=== PATIENT | female | born 1940 | race Caucasian/White ===

== ENCOUNTER 2016-12-22 17:09 | Inpatient (IN) | payer OTHER ==
[~2016-12-22] VITALS: Ht 152.4 cm; Wt 106.2 kg
[~2016-12-22 17:09] MED LIST: ACETAMINOPHEN500 MG PO; ASPIR-LOW81 MG PO; ATROVENT 00.5 MG/2.5 IH; AUGMENTIN875 MG PO; AZELASTINE137 MCG/0. BOTH NARES; BENTYL10 MG PO; BENZONATATE100 MG PO; BUMETANIDE1 MG PO; BUMEX1 MG PO; BUMEX2 MG PO; CARVEDILOL12.5 MG PO; COREG12.5 M1 PO; CORTISONE SHOT; COZAAR100 MG PO; DOCUSATE SODIU100 M1 PO; ELIQUIS5 MG PO; ELOCON 0.1% CRE15 GM TP; ESOMEPRAZOLE MA40 MG PO; FOLIC ACID1 MG PO; FUROSEMIDE40 MG PO; HYDROCORTISONE30 G2 TP; K-DUR20 MEQ PO; LASIX40 MG PO; LASIX80 MG PO; LEVOFLOXACIN750 MG PO; LEVOTHYROXINE88 MCG PO; LIDOCAINE700 MG TD; LIDODERM 5% P1 PATCH TD; LIPITOR10 MG PO; LISINOPRIL40 MG PO; LOSARTAN POTAS100 MG PO; LOW DOSE ASPIRI81 M1 PO; LYRICA50 MG PO; METAXALONE800 MG PO; METHOTREXATE2.5 MG PO; MIRALAX17 GM PO; MIRALAX255 GM PO; NEXIUM40 MG PO; NORVASC10 M1 PO; NORVASC5 MG PO; OXYCODONE HCL10 MG PO; OXYCODONE HCL5 MG PO; PREDNISONE10 MG PO; PROAIR HFA8.5 GM IH; PROCTOCREAM-HC30 GM PR; PROTONIX40 MG PO; QUESTRAN PACKET4 GM PO; SERTRALINE HCL100 MG PO; SERTRALINE HCL50 MG PO; SPIRIVA RESPIMAT4 GM IH; SPIRIVA1 INHALATI IH; SPIRONOLACTONE25 MG PO; SPIRONOLACTONE50 MG PO; SYMBICORT60 INHALAT IH; TRAMADOL HCL50 MG PO; VENTOLIN HFA18 GM IH; VENTOLIN17 GM IH; ZESTRIL,PRINIVI10 MG PO; ZOFRAN ODT4 MG PO; ZOFRAN4 MG PO
[2016-12-22 17:50] LABS: HEMATOCRIT 30.8 % (36.0-46.0); MCH 23.8 PG (29.0-34.0); MCHC 31.5 G/DL (30.0-36.0); MCV 75.5 FL (83-99); MEAN PLAT.VOLUME 8.9 uM^3 (9.5-12.4); PLATELET COUNT 359 K/uL (156-360); RBC DIS.WIDTH-CV 18.3 % (11.8-14.6); RBC DIS.WIDTH-SD 48.3 % (39-53); RED BLOOD COUNT 4.08 M/uL (3.80-5.20); WHITE BLOOD COUNT 6.9 K/uL (4.1-10.2)
[2016-12-22 17:58] LABS: CHLORIDE 102 mEq/L (99-109); SODIUM 141 mEq/L (136-147)
[2016-12-22 18:00] LABS: GLUCOSE 141 mg/dL (70-99)
[2016-12-22 18:01] LABS: ANION GAP 13 MEQ/L (2-14)
[2016-12-22 18:04] LABS: GFR ESTIMATE (CALCULATED) > 59 mL/min/
[2016-12-22 18:05] LABS: UREA NITROGEN (BUN) 11 mg/dL (9-23)
[2016-12-22 18:10] LABS: TROP-I INTERPRETATION NEGATIVE; TROPONIN-I 0.01 ng/mL (0.0-0.30)
[2016-12-22] MEDS ORDERED: ELOCON 0.1% CRE15 GM TP (20:04)
[2016-12-22] MEDS ORDERED: PROVENTIL,2.5 MG/3 M IH (20:11)
[2016-12-22] MEDS ORDERED: BREO ELLIPTA 21 EACH IH (20:11)
[2016-12-22 21:39] VITALS: BP 107/59
[2016-12-22 23:34] VITALS: BP 107/59
[2016-12-22 23:39] LABS: TROP-I INTERPRETATION NEGATIVE; TROPONIN-I 0.01 ng/mL (0.0-0.30)
[2016-12-23 01:03] LABS: INFLUENZA A VIRAL ANTIGEN NEGATIVE; INFLUENZA B VIRAL ANTIGEN NEGATIVE
[2016-12-23 06:53] LABS: HEMATOCRIT 30.2 % (36.0-46.0); MCH 23.7 PG (29.0-34.0); MCHC 30.5 G/DL (30.0-36.0); MCV 77.6 FL (83-99); MEAN PLAT.VOLUME 9.7 uM^3 (9.5-12.4); PLATELET COUNT 314 K/uL (156-360); RBC DIS.WIDTH-CV 18.2 % (11.8-14.6); RBC DIS.WIDTH-SD 51.6 % (39-53); RED BLOOD COUNT 3.89 M/uL (3.80-5.20); WHITE BLOOD COUNT 5.8 K/uL (4.1-10.2)
[2016-12-23 07:16] LABS: EOSINOPHIL (%) 0 % (0-5); IMMATURE GRANULOCYTE (%) 1.4 % (0.0-0.7); IMMATURE GRANULOCYTE COUNT 0.1 K/uL; LYMPHOCYTE COUNT 1.4 K/uL (1.0-2.8); MONOCYTE (%) 2.4 % (3-12); MONOCYTE COUNT 0.1 K/uL (0-0.8); NEUTROPHIL (%) 71.9 % (45-76); NEUTROPHIL COUNT 4.2 K/uL (1.8-6.4)
[2016-12-23 07:18] LABS: ALKALINE PHOSPHATASE 93 IU/L (3-129); ANION GAP 11 MEQ/L (2-14); CHLORIDE 103 MEQ/L (99-109); GFR ESTIMATE (CALCULATED) 57 mL/min/; POTASSIUM 4.3 MEQ/L (3.7-5.4); SAMPLE HEMOLYSIS CHECK 0; SAMPLE ICTERIC CHECK 0; SAMPLE LIPEMIA CHECK 0; SODIUM 141 MEQ/L (136-147); TOTAL BILIRUBIN 0.6 MG/DL (0.0-1.0); UREA NITROGEN (BUN) 16 mg/dL (9-23)
[2016-12-23 07:21] LABS: GLUCOSE 309 mg/dL (70-99)
[2016-12-23 07:29] LABS: TROP-I INTERPRETATION NEGATIVE; TROPONIN-I 0.01 ng/mL (0.0-0.30)
[2016-12-23 07:42] VITALS: BP 130/86
[2016-12-23 07:49] LABS: INTERNAL CONTROL VALID? YES
[2016-12-23 13:44] LABS: INTER. NORMALIZED RATIO 1.2; PROTHROMBIN TIME 12.7 (9.2-11.2)
[2016-12-23 14:19] LABS: D-DIMER ELISA 0.55 mg/L FEU (< 0.57)
[2016-12-23 15:34] VITALS: BP 128/79
[2016-12-23 21:00] VITALS: BP 122/64
[2016-12-24] VITALS: BP 122/64
[2016-12-24 08:42] VITALS: BP 149/67
[2016-12-24 08:53] LABS: INTERNAL CONTROL VALID? YES
[2016-12-24 14:43] VITALS: BP 135/69
[2016-12-24 23:59] VITALS: BP 136/67
[2016-12-25] VITALS (15 sets, daily range): BP systolic 119–175; BP diastolic 50–82
[2016-12-25 04:08] LABS: BASE EXCESS 5.2 mEq/L (-3 to +3); BICARBONATE 29.9 mEq/L (22-26); CARBOXY HGB 0.9 % (0-5); METHEMOGLOBIN 0.9 % (0-1.5); PCO2 44 mm Hg (35-45); PO2 61 mm Hg (80-100); pH 7.44 (7.35-7.45)
[2016-12-25 04:09] LABS: COMMENTS - BLOOD GASES C+; DEVICE HHFNC; FI02 100 %; O2 FLOW 50 L/MIN; SITE RR; TOTAL RESP RATE 20 resp/min
[2016-12-25 04:41] LABS: EOSINOPHIL (%) 0 % (0-5); HEMATOCRIT 30.5 % (36.0-46.0); IMMATURE GRANULOCYTE (%) 1.1 % (0.0-0.7); IMMATURE GRANULOCYTE COUNT 1.2 K/uL; LYMPHOCYTE COUNT 1.1 K/uL (1.0-2.8); MCH 23.7 PG (29.0-34.0); MCHC 30.8 G/DL (30.0-36.0); MCV 76.8 FL (83-99); MEAN PLAT.VOLUME 9.2 uM^3 (9.5-12.4); MONOCYTE (%) 4.6 % (3-12); MONOCYTE COUNT 0.5 K/uL (0-0.8); NEUTROPHIL COUNT 9.4 K/uL (1.8-6.4); PLATELET COUNT 388 K/uL (156-360); RBC DIS.WIDTH-CV 17.9 % (11.8-14.6); RBC DIS.WIDTH-SD 47.9 % (39-53); RED BLOOD COUNT 3.97 M/uL (3.80-5.20); WHITE BLOOD COUNT 11.1 K/uL (4.1-10.2)
[2016-12-25 04:46] LABS: CHLORIDE 106 mEq/L (99-109); POTASSIUM 4.1 mEq/L (3.7-5.4); SODIUM 144 mEq/L (136-147)
[2016-12-25 04:48] LABS: GLUCOSE 356 mg/dL (70-99)
[2016-12-25 04:50] LABS: ANION GAP 13 MEQ/L (2-14); TOTAL BILIRUBIN 0.5 mg/dL (0.0-1.0)
[2016-12-25 04:52] LABS: ALKALINE PHOSPHATASE 113 IU/L (3-129); GFR ESTIMATE (CALCULATED) 51 mL/min/
[2016-12-25 04:57] LABS: UREA NITROGEN (BUN) 28 mg/dL (9-23)
[2016-12-25 06:01] LABS: BASE EXCESS 6.1 mEq/L (-3 to +3); BICARBONATE 30.6 mEq/L (22-26); CARBOXY HGB 0.7 % (0-5); COMMENTS - BLOOD GASES C+; DEVICE MASK VENT; FI02 100 %; HEMOGLOBIN 9.1 (11.9-15.5); MODE SPONT; PCO2 43 mm Hg (35-45); PO2 107 mm Hg (80-100); SITE RR; pH 7.46 (7.35-7.45)
[2016-12-25 06:02] LABS: PEEP 8 CM/H20; PRES. SUPPORT 10 CM/H2O; TOTAL RESP RATE 31 resp/min
[2016-12-25 06:04] LABS: MAGNESIUM 1.7 mg/dL (1.3-2.7)
[2016-12-25 06:27] LABS: METH RESISTANT S AUREUS PCR NEGATIVE (NEGATIVE)
[2016-12-25 06:30] LABS: PROBE CHECK PASS; SPECIMEN PROCESSING CONTROL PASS
[2016-12-25 12:35] LABS: POINT-OF-CARE METER ID UU14174217
[2016-12-25 18:11] LABS: POINT-OF-CARE METER ID UU14174217
[2016-12-25 23:57] LABS: POINT-OF-CARE METER ID UU14174217
[2016-12-26] VITALS (21 sets, daily range): BP systolic 121–157; BP diastolic 44–77
[2016-12-26 05:06] LABS: POINT-OF-CARE METER ID UU14174217
[2016-12-26 05:47] LABS: HEMATOCRIT 29.1 % (36.0-46.0); MCH 23.5 PG (29.0-34.0); MCHC 29.9 G/DL (30.0-36.0); MCV 78.4 FL (83-99); MEAN PLAT.VOLUME 9.9 uM^3 (9.5-12.4); PLATELET COUNT 301 K/uL (156-360); RBC DIS.WIDTH-SD 51.9 % (39-53); RED BLOOD COUNT 3.71 M/uL (3.80-5.20)
[2016-12-26 06:23] LABS: ANION GAP 10 MEQ/L (2-14); CHLORIDE 104 MEQ/L (99-109); GFR ESTIMATE (CALCULATED) > 59 mL/min/; GLUCOSE 244 mg/dL (70-99); MAGNESIUM 1.7 mg/dl (1.3-2.7); POTASSIUM 3.8 MEQ/L (3.7-5.4); SAMPLE HEMOLYSIS CHECK 0; SAMPLE ICTERIC CHECK 0; SAMPLE LIPEMIA CHECK 0; SODIUM 144 MEQ/L (136-147); UREA NITROGEN (BUN) 24 mg/dL (9-23)
[2016-12-26 11:49] LABS: POINT-OF-CARE METER ID UU14174217
[2016-12-26 17:30] LABS: POINT-OF-CARE METER ID UU13113731
[2016-12-27] VITALS (19 sets, daily range): BP systolic 98–158; BP diastolic 42–109
[2016-12-27 06:24] LABS: HEMATOCRIT 29.2 % (36.0-46.0); MCH 23.8 PG (29.0-34.0); MCHC 30.1 G/DL (30.0-36.0); MCV 78.9 FL (83-99); PLATELET COUNT 300 K/uL (156-360); RBC DIS.WIDTH-CV 18.2 % (11.8-14.6); RBC DIS.WIDTH-SD 52.2 % (39-53); WHITE BLOOD COUNT 8.4 K/uL (4.1-10.2)
[2016-12-27 06:33] LABS: POINT-OF-CARE METER ID UU13113748
[2016-12-27 06:51] LABS: ANION GAP 10 MEQ/L (2-14); CHLORIDE 104 MEQ/L (99-109); GFR ESTIMATE (CALCULATED) > 59 mL/min/; GLUCOSE 276 mg/dL (70-99); POTASSIUM 3.8 MEQ/L (3.7-5.4); SAMPLE HEMOLYSIS CHECK 0; SAMPLE ICTERIC CHECK 0; SAMPLE LIPEMIA CHECK 0; SODIUM 147 MEQ/L (136-147); UREA NITROGEN (BUN) 29 mg/dL (9-23)
[2016-12-27 06:56] LABS: MAGNESIUM 2.3 mg/dl (1.3-2.7)
[2016-12-27 12:15] LABS: POINT-OF-CARE METER ID UU13113748
[2016-12-27 17:29] LABS: POINT-OF-CARE METER ID UU13113748
[2016-12-27 17:31] LABS: C DIFF TOXIN NEGATIVE (NEGATIVE)
[2016-12-27 17:34] LABS: PROBE CHECK PASS; SPECIMEN PROCESSING CONTROL PASS
[2016-12-28] VITALS (19 sets, daily range): BP systolic 113–152; BP diastolic 42–64
[2016-12-28 00:19] LABS: POINT-OF-CARE METER ID UU13113748
[2016-12-28 05:45] LABS: MCH 23.6 PG (29.0-34.0); MCHC 30.3 G/DL (30.0-36.0); MCV 77.7 FL (83-99); MEAN PLAT.VOLUME 9.8 uM^3 (9.5-12.4); PLATELET COUNT 298 K/uL (156-360); RBC DIS.WIDTH-CV 18.1 % (11.8-14.6); RBC DIS.WIDTH-SD 51.6 % (39-53); RED BLOOD COUNT 3.73 M/uL (3.80-5.20); WHITE BLOOD COUNT 9.6 K/uL (4.1-10.2)
[2016-12-28 06:11] LABS: ANION GAP 8 MEQ/L (2-14); CHLORIDE 100 MEQ/L (99-109); GFR ESTIMATE (CALCULATED) > 59 mL/min/; GLUCOSE 216 mg/dL (70-99); MAGNESIUM 2.2 mg/dl (1.3-2.7); POTASSIUM 3.5 MEQ/L (3.7-5.4); SAMPLE HEMOLYSIS CHECK 0; SAMPLE ICTERIC CHECK 0; SAMPLE LIPEMIA CHECK 0; SODIUM 144 MEQ/L (136-147); UREA NITROGEN (BUN) 28 mg/dL (9-23)
[2016-12-28 06:33] LABS: POINT-OF-CARE METER ID UU13113748
[2016-12-28 11:23] LABS: ANTI-NUCLEAR AB SCRN/RFLX(ANA) REACTIVE (NONREACTIVE)
[2016-12-28 11:26] LABS: POINT-OF-CARE METER ID UU14162636
[2016-12-28 11:27] LABS: JO-1 ANTIBODY 164 U/mL (0-99); SCL-70 (SCLERODERMA) ANTIBODY 9 U/mL (0-99); SM (SMITH) ANTIBODY 22 U/mL (0-99); SS-A (SJOGREN'S) ANTIBODY 18 U/mL (0-99); SS-B (SJOGREN'S) ANTIBODY 8 U/mL (0-99)
[2016-12-28 11:28] LABS: CENTROMERE ANTIBODY 5 U/mL (0-99); HISTONE ANTIBODY 26 U/mL (0-99)
[2016-12-28 17:53] LABS: POINT-OF-CARE METER ID UU14174217
[2016-12-29] VITALS (23 sets, daily range): BP systolic 100–168; BP diastolic 39–71
[2016-12-29 00:18] LABS: POINT-OF-CARE METER ID UU13113748; POINT-OF-CARE USER ID RADDRS44
[2016-12-29 06:15] LABS: HEMATOCRIT 31.7 % (36.0-46.0); MCH 23.3 PG (29.0-34.0); MCV 77.7 FL (83-99); MEAN PLAT.VOLUME 9.9 uM^3 (9.5-12.4); PLATELET COUNT 282 K/uL (156-360); RBC DIS.WIDTH-CV 18.1 % (11.8-14.6); RBC DIS.WIDTH-SD 51.7 % (39-53); RED BLOOD COUNT 4.08 M/uL (3.80-5.20); WHITE BLOOD COUNT 11.1 K/uL (4.1-10.2)
[2016-12-29 06:41] LABS: ANION GAP 10 MEQ/L (2-14); CHLORIDE 99 MEQ/L (99-109); GFR ESTIMATE (CALCULATED) 57 mL/min/; GLUCOSE 227 mg/dL (70-99); MAGNESIUM 2.1 mg/dl (1.3-2.7); POTASSIUM 4.1 MEQ/L (3.7-5.4); SAMPLE HEMOLYSIS CHECK 0; SAMPLE ICTERIC CHECK 0; SAMPLE LIPEMIA CHECK 0; SODIUM 142 MEQ/L (136-147); UREA NITROGEN (BUN) 31 mg/dL (9-23)
[2016-12-29 09:48] LABS: POC NON-PRINT COM 1 ND
[2016-12-29 12:56] LABS: POINT-OF-CARE METER ID UU14162636
[2016-12-29 17:29] LABS: POINT-OF-CARE METER ID UU13113748
[2016-12-29 21:40] LABS: POINT-OF-CARE METER ID UU14162636
[2016-12-30] VITALS (8 sets, daily range): BP systolic 122–167; BP diastolic 41–70
[2016-12-30 05:59] LABS: HEMATOCRIT 30.6 % (36.0-46.0); MCH 23.2 PG (29.0-34.0); MCHC 29.7 G/DL (30.0-36.0); MCV 78.1 FL (83-99); MEAN PLAT.VOLUME 9.9 uM^3 (9.5-12.4); PLATELET COUNT 287 K/uL (156-360); RBC DIS.WIDTH-CV 18.3 % (11.8-14.6); RBC DIS.WIDTH-SD 51.8 % (39-53); RED BLOOD COUNT 3.92 M/uL (3.80-5.20)
[2016-12-30 06:43] LABS: ANION GAP 12 MEQ/L (2-14); CHLORIDE 100 MEQ/L (99-109); GFR ESTIMATE (CALCULATED) 51 mL/min/; GLUCOSE 220 mg/dL (70-99); MAGNESIUM 2.2 mg/dl (1.3-2.7); POTASSIUM 3.9 MEQ/L (3.7-5.4); SAMPLE HEMOLYSIS CHECK 0; SAMPLE ICTERIC CHECK 0; SAMPLE LIPEMIA CHECK 0; SODIUM 142 MEQ/L (136-147); UREA NITROGEN (BUN) 38 mg/dL (9-23)
[2016-12-30 08:30] LABS: POINT-OF-CARE METER ID UU13113731
[2016-12-30 11:54] LABS: POINT-OF-CARE METER ID UU13113731
[2016-12-30 17:07] LABS: POINT-OF-CARE METER ID UU13113731
[2016-12-30 22:22] LABS: POINT-OF-CARE METER ID UU13113803
[2016-12-31] VITALS (8 sets, daily range): BP systolic 128–164; BP diastolic 47–71
[2016-12-31 05:49] LABS: HEMATOCRIT 30.6 % (36.0-46.0); MCH 23.1 PG (29.0-34.0); MCHC 29.4 G/DL (30.0-36.0); MCV 78.5 FL (83-99); PLATELET COUNT 256 K/uL (156-360); RBC DIS.WIDTH-CV 18.8 % (11.8-14.6); RBC DIS.WIDTH-SD 53.1 % (39-53); WHITE BLOOD COUNT 9.6 K/uL (4.1-10.2)
[2016-12-31 06:58] LABS: ANION GAP 9 MEQ/L (2-14); CHLORIDE 105 MEQ/L (99-109); GFR ESTIMATE (CALCULATED) > 59 mL/min/; GLUCOSE 202 mg/dL (70-99); MAGNESIUM 2.3 mg/dl (1.3-2.7); SAMPLE HEMOLYSIS CHECK 0; SAMPLE ICTERIC CHECK 0; SAMPLE LIPEMIA CHECK 0; SODIUM 143 MEQ/L (136-147); UREA NITROGEN (BUN) 31 mg/dL (9-23)
[2016-12-31 07:53] LABS: POINT-OF-CARE METER ID UU13113748
[2016-12-31 12:41] LABS: POINT-OF-CARE METER ID UU13113748
[2016-12-31 18:27] LABS: POINT-OF-CARE METER ID UU13113748; POINT-OF-CARE USER ID 606021424
[2016-12-31 21:53] LABS: POINT-OF-CARE METER ID UU13113731
[2016-12-31 23:09] LABS: INTERNAL CONTROL VALID? YES
[2017-01-01] VITALS (7 sets, daily range): BP systolic 127–157; BP diastolic 56–76
[2017-01-01 05:50] LABS: MCH 23.9 PG (29.0-34.0); MCHC 30.3 G/DL (30.0-36.0); MCV 78.7 FL (83-99); MEAN PLAT.VOLUME 10.4 uM^3 (9.5-12.4); PLATELET COUNT 242 K/uL (156-360); RBC DIS.WIDTH-CV 18.9 % (11.8-14.6); RBC DIS.WIDTH-SD 53.3 % (39-53); RED BLOOD COUNT 3.81 M/uL (3.80-5.20); WHITE BLOOD COUNT 10.1 K/uL (4.1-10.2)
[2017-01-01 06:25] LABS: ANION GAP 9 MEQ/L (2-14); CHLORIDE 102 MEQ/L (99-109); GFR ESTIMATE (CALCULATED) > 59 mL/min/; GLUCOSE 193 mg/dL (70-99); MAGNESIUM 2.3 mg/dl (1.3-2.7); POTASSIUM 4.2 MEQ/L (3.7-5.4); SAMPLE HEMOLYSIS CHECK 0; SAMPLE ICTERIC CHECK 0; SAMPLE LIPEMIA CHECK 0; SODIUM 140 MEQ/L (136-147); UREA NITROGEN (BUN) 30 mg/dL (9-23)
[2017-01-01 06:52] LABS: ERTH.SED.RATE 92 MM/HR (0-30)
[2017-01-01 12:55] LABS: POINT-OF-CARE METER ID UU13113748
[2017-01-01 17:23] LABS: POINT-OF-CARE METER ID UU13113748
[2017-01-01 22:06] LABS: POINT-OF-CARE METER ID UU13113748
[2017-01-02] VITALS (12 sets, daily range): BP systolic 127–163; BP diastolic 44–73
[2017-01-02 05:24] LABS: HEMATOCRIT 29.8 % (36.0-46.0); MCH 23.5 PG (29.0-34.0); MCHC 29.9 G/DL (30.0-36.0); MCV 78.6 FL (83-99); MEAN PLAT.VOLUME 10.1 uM^3 (9.5-12.4); PLATELET COUNT 247 K/uL (156-360); RBC DIS.WIDTH-CV 19.1 % (11.8-14.6); RBC DIS.WIDTH-SD 53.4 % (39-53); RED BLOOD COUNT 3.79 M/uL (3.80-5.20)
[2017-01-02 05:53] LABS: ANION GAP 9 MEQ/L (2-14); CHLORIDE 104 MEQ/L (99-109); GFR ESTIMATE (CALCULATED) > 59 mL/min/; GLUCOSE 237 mg/dL (70-99); MAGNESIUM 2.2 mg/dl (1.3-2.7); POTASSIUM 4.6 MEQ/L (3.7-5.4); SAMPLE HEMOLYSIS CHECK 0; SAMPLE ICTERIC CHECK 0; SAMPLE LIPEMIA CHECK 0; SODIUM 139 MEQ/L (136-147); UREA NITROGEN (BUN) 33 mg/dL (9-23)
[2017-01-02 06:57] LABS: EOSINOPHIL (%) 0 % (0-5); HEMATOLOGY COMMENT 1 SMEAR COMPATIBLE; IMMATURE GRANULOCYTE COUNT 0.2 K/uL; LYMPHOCYTE COUNT 1.1 K/uL (1.0-2.8); MONOCYTE (%) 3.6 % (3-12); MONOCYTE COUNT 0.4 K/uL (0-0.8); NEUTROPHIL (%) 84.1 % (45-76); NEUTROPHIL COUNT 9.2 K/uL (1.8-6.4); USER ID CCL
[2017-01-02 09:03] LABS: POINT-OF-CARE METER ID UU13113748
[2017-01-02 12:28] LABS: POINT-OF-CARE METER ID UU13113748
[2017-01-02 17:47] LABS: POINT-OF-CARE METER ID UU13113748
[2017-01-02 22:38] LABS: POINT-OF-CARE METER ID UU13113803
[2017-01-03] VITALS (16 sets, daily range): BP systolic 126–173; BP diastolic 45–75
[2017-01-03 05:31] LABS: MCH 23.4 PG (29.0-34.0); MCHC 29.7 G/DL (30.0-36.0); MCV 78.9 FL (83-99); MEAN PLAT.VOLUME 10.4 uM^3 (9.5-12.4); PLATELET COUNT 226 K/uL (156-360); RBC DIS.WIDTH-CV 19.1 % (11.8-14.6); RBC DIS.WIDTH-SD 53.7 % (39-53); WHITE BLOOD COUNT 10.5 K/uL (4.1-10.2)
[2017-01-03 05:43] LABS: EOSINOPHIL (%) 0 % (0-5); IMMATURE GRANULOCYTE (%) 1.6 % (0.0-0.7); IMMATURE GRANULOCYTE COUNT 0.2 K/uL; LYMPHOCYTE COUNT 1.1 K/uL (1.0-2.8); MONOCYTE (%) 3.7 % (3-12); MONOCYTE COUNT 0.4 K/uL (0-0.8); NEUTROPHIL (%) 84.5 % (45-76); NEUTROPHIL COUNT 8.9 K/uL (1.8-6.4)
[2017-01-03 06:06] LABS: ANION GAP 8 MEQ/L (2-14); CHLORIDE 104 MEQ/L (99-109); GFR ESTIMATE (CALCULATED) > 59 mL/min/; GLUCOSE 228 mg/dL (70-99); POTASSIUM 4.7 MEQ/L (3.7-5.4); SAMPLE HEMOLYSIS CHECK 0; SAMPLE ICTERIC CHECK 0; SAMPLE LIPEMIA CHECK 0; SODIUM 138 MEQ/L (136-147); UREA NITROGEN (BUN) 30 mg/dL (9-23)
[2017-01-03 12:08] LABS: POINT-OF-CARE METER ID UU13113748
[2017-01-03 21:24] LABS: POINT-OF-CARE METER ID UU13113803
[2017-01-03 22:30] LABS: POINT-OF-CARE METER ID UU13113748
[2017-01-04] VITALS (7 sets, daily range): BP systolic 123–167; BP diastolic 44–92
[2017-01-04 06:14] LABS: HEMATOCRIT 31.2 % (36.0-46.0); MCH 23.4 PG (29.0-34.0); MCHC 29.8 G/DL (30.0-36.0); MCV 78.4 FL (83-99); MEAN PLAT.VOLUME 10.4 uM^3 (9.5-12.4); PLATELET COUNT 243 K/uL (156-360); RBC DIS.WIDTH-SD 52.8 % (39-53); RED BLOOD COUNT 3.98 M/uL (3.80-5.20); WHITE BLOOD COUNT 13.1 K/uL (4.1-10.2)
[2017-01-04 06:26] LABS: EOSINOPHIL (%) 0 % (0-5); IMMATURE GRANULOCYTE COUNT 0.3 K/uL; LYMPHOCYTE COUNT 1.3 K/uL (1.0-2.8); MONOCYTE (%) 5.1 % (3-12); MONOCYTE COUNT 0.7 K/uL (0-0.8); NEUTROPHIL (%) 83.1 % (45-76); NEUTROPHIL COUNT 10.9 K/uL (1.8-6.4)
[2017-01-04 06:51] LABS: ANION GAP 9 MEQ/L (2-14); CHLORIDE 102 MEQ/L (99-109); SAMPLE HEMOLYSIS CHECK 0; SAMPLE ICTERIC CHECK 0; SAMPLE LIPEMIA CHECK 0; SODIUM 138 MEQ/L (136-147)
[2017-01-04 06:57] LABS: GFR ESTIMATE (CALCULATED) > 59 mL/min/; GLUCOSE 192 mg/dL (70-99); UREA NITROGEN (BUN) 28 mg/dL (9-23)
[2017-01-05] VITALS (8 sets, daily range): BP systolic 113–177; BP diastolic 53–86
[2017-01-05 09:14] LABS: POINT-OF-CARE METER ID UU13113731
[2017-01-05 12:55] LABS: POINT-OF-CARE METER ID UU13113731
[2017-01-05 17:11] LABS: POINT-OF-CARE METER ID UU13113731
[2017-01-05 21:59] LABS: POINT-OF-CARE METER ID UU13113731
[2017-01-06] VITALS (27 sets, daily range): BP systolic 64–164; BP diastolic 39–84
[2017-01-06 06:33] LABS: HEMATOCRIT 29.8 % (36.0-46.0); MCH 23.2 PG (29.0-34.0); MCHC 29.9 G/DL (30.0-36.0); MCV 77.8 FL (83-99); MEAN PLAT.VOLUME 10.4 uM^3 (9.5-12.4); NRBC (%) 0.3 /100 WBC (0-0); PLATELET COUNT 228 K/uL (156-360); RBC DIS.WIDTH-CV 19.7 % (11.8-14.6); RBC DIS.WIDTH-SD 55.4 % (39-53); RED BLOOD COUNT 3.83 M/uL (3.80-5.20); WHITE BLOOD COUNT 11.9 K/uL (4.1-10.2)
[2017-01-06 06:47] LABS: EOSINOPHIL (%) 0 % (0-5); IMMATURE GRANULOCYTE (%) 1.1 % (0.0-0.7); IMMATURE GRANULOCYTE COUNT 0.1 K/uL; MONOCYTE (%) 4.2 % (3-12); MONOCYTE COUNT 0.5 K/uL (0-0.8); NEUTROPHIL (%) 86.6 % (45-76); NEUTROPHIL COUNT 10.3 K/uL (1.8-6.4)
[2017-01-06 06:50] LABS: ANION GAP 7 MEQ/L (2-14); CHLORIDE 102 MEQ/L (99-109); GFR ESTIMATE (CALCULATED) > 59 mL/min/; GLUCOSE 263 mg/dL (70-99); POTASSIUM 4.4 MEQ/L (3.7-5.4); SAMPLE HEMOLYSIS CHECK 0; SAMPLE ICTERIC CHECK 0; SAMPLE LIPEMIA CHECK 0; SODIUM 139 MEQ/L (136-147); UREA NITROGEN (BUN) 29 mg/dL (9-23)
[2017-01-06 07:48] LABS: POINT-OF-CARE METER ID UU13113698; POINT-OF-CARE USER ID NUTSLF44
[2017-01-06 10:40] LABS: METH RESISTANT S AUREUS PCR NEGATIVE (NEGATIVE); PROBE CHECK PASS; SPECIMEN PROCESSING CONTROL PASS
[2017-01-06 11:58] LABS: BASE EXCESS 3.1 mEq/L (-3 to +3); BICARBONATE 30.1 mEq/L (22-26); CARBOXY HGB 1.8 % (0-5); METHEMOGLOBIN 0.9 % (0-1.5)
[2017-01-06 11:59] LABS: COMMENTS - BLOOD GASES A+C+; DEVICE 840; FI02 100 %; MECHANICAL RATE 20 resp/min; MODE A/C; PCO2 57 mm Hg (35-45); PO2 85 mm Hg (80-100); SITE LR; TIDAL VOLUME 400 ML; TOTAL RESP RATE 20 resp/min; pH 7.33 (7.35-7.45)
[2017-01-06 12:00] LABS: PEEP 10 CM/H20
[2017-01-06 12:05] LABS: ADD MIUA? YES; BILIRUBIN NEGATIVE; BLOOD MODERATE; COLOR AMBER ((YELLOW)); GLUCOSE (STRIP) 50; KETONES NEGATIVE; LEUKOCYTES NEGATIVE; NITRITE NEGATIVE; PROTEIN (STRIP) 100; SPECIFIC GRAVITY 1.021 (1.000-1.030); UROBILINOGEN 0.2 MG/DL (0.2-1.0)
[2017-01-06 12:23] LABS: BACTERIA 2+ /HPF; CASTS NONE SEEN /LPF; CRYSTALS PRESENT; EPITHELIAL CELLS 1+ /HPF; MUCUS NONE SEEN /LPF; UCUL ADDED? YES
[2017-01-06 12:24] LABS: CALCIUM OXALATE CRYSTALS 1+ /HPF
[2017-01-06 15:14] LABS: POINT-OF-CARE METER ID UU13113803
[2017-01-06 16:27] LABS: BASE EXCESS 3.3 mEq/L (-3 to +3); BICARBONATE 30.1 mEq/L (22-26); CARBOXY HGB 1.5 % (0-5); METHEMOGLOBIN 0.9 % (0-1.5); PCO2 57 mm Hg (35-45); PO2 81 mm Hg (80-100); pH 7.33 (7.35-7.45)
[2017-01-06 16:28] LABS: DEVICE VENT; FI02 100 %; MECHANICAL RATE 12 resp/min; MODE BILEVEL; PRESSURE CONTROL VENTILATION 26 CM H20; SITE LR; TOTAL RESP RATE 34 resp/min
[2017-01-06 16:29] LABS: COMMENTS - BLOOD GASES A+C+:Time low 0.6; PEEP 0 CM/H20; PRES. SUPPORT 36 CM/H2O
[2017-01-06 18:16] LABS: POINT-OF-CARE METER ID UU13113803
[2017-01-06 22:45] LABS: POINT-OF-CARE METER ID UU13113803
[2017-01-07] VITALS (24 sets, daily range): BP systolic 97–141; BP diastolic 43–64
[2017-01-07 06:01] LABS: HEMATOCRIT 29.1 % (36.0-46.0); MCH 23.5 PG (29.0-34.0); MCHC 29.6 G/DL (30.0-36.0); MCV 79.5 FL (83-99); MEAN PLAT.VOLUME 10.4 uM^3 (9.5-12.4); PLATELET COUNT 200 K/uL (156-360); RBC DIS.WIDTH-CV 19.4 % (11.8-14.6); RBC DIS.WIDTH-SD 56.2 % (39-53); RED BLOOD COUNT 3.66 M/uL (3.80-5.20); WHITE BLOOD COUNT 10.3 K/uL (4.1-10.2)
[2017-01-07 06:13] LABS: BASE EXCESS 2.7 mEq/L (-3 to +3); BICARBONATE 29.1 mEq/L (22-26); CARBOXY HGB 1.5 % (0-5); COMMENTS - BLOOD GASES C+; DEVICE VENT; FI02 60 %; MECHANICAL RATE 12 resp/min; METHEMOGLOBIN 1.1 % (0-1.5); MODE BILEVEL/PC; PCO2 54 mm Hg (35-45); PO2 71 mm Hg (80-100); SITE RR; pH 7.34 (7.35-7.45)
[2017-01-07 06:14] LABS: PRES. SUPPORT 36 CM/H2O; PRESSURE CONTROL VENTILATION 26 CM H20; TOTAL RESP RATE 36 resp/min
[2017-01-07 06:15] LABS: PEEP 0 CM/H20
[2017-01-07 06:15] LABS: EOSINOPHIL (%) 0 % (0-5); IMMATURE GRANULOCYTE (%) 0.5 % (0.0-0.7); IMMATURE GRANULOCYTE COUNT 0.1 K/uL; LYMPHOCYTE COUNT 0.6 K/uL (1.0-2.8); MONOCYTE (%) 2.2 % (3-12); MONOCYTE COUNT 0.2 K/uL (0-0.8); NEUTROPHIL (%) 91.7 % (45-76); NEUTROPHIL COUNT 9.4 K/uL (1.8-6.4)
[2017-01-07 06:17] LABS: ANION GAP 8 MEQ/L (2-14); CHLORIDE 103 MEQ/L (99-109); MAGNESIUM 2.1 mg/dl (1.3-2.7); POTASSIUM 4.6 MEQ/L (3.7-5.4); SAMPLE HEMOLYSIS CHECK 0; SAMPLE ICTERIC CHECK 0; SAMPLE LIPEMIA CHECK 0; SODIUM 138 MEQ/L (136-147)
[2017-01-07 06:22] LABS: GFR ESTIMATE (CALCULATED) > 59 mL/min/; GLUCOSE 237 mg/dL (70-99); UREA NITROGEN (BUN) 37 mg/dL (9-23)
[2017-01-08] VITALS (21 sets, daily range): BP systolic 100–139; BP diastolic 48–71
[2017-01-08 02:50] LABS: POINT-OF-CARE METER ID UU13113731
[2017-01-08 05:25] LABS: POINT-OF-CARE METER ID UU13113731
[2017-01-08 05:54] LABS: HEMATOCRIT 28.4 % (36.0-46.0); MCH 23.4 PG (29.0-34.0); MCHC 29.9 G/DL (30.0-36.0); MCV 78.2 FL (83-99); MEAN PLAT.VOLUME 9.9 uM^3 (9.5-12.4); NRBC (%) 0.5 /100 WBC (0-0); PLATELET COUNT 196 K/uL (156-360); RBC DIS.WIDTH-CV 19.5 % (11.8-14.6); RBC DIS.WIDTH-SD 55.2 % (39-53); RED BLOOD COUNT 3.63 M/uL (3.80-5.20); WHITE BLOOD COUNT 8.9 K/uL (4.1-10.2)
[2017-01-08 06:00] LABS: BASE EXCESS 1.8 mEq/L (-3 to +3); BICARBONATE 28.1 mEq/L (22-26); CARBOXY HGB 1.3 % (0-5); COMMENTS - BLOOD GASES C+; DEVICE 840; FI02 60 %; MECHANICAL RATE 12 resp/min; METHEMOGLOBIN 0.8 % (0-1.5); MODE BILEVEL; PCO2 52 mm Hg (35-45); PO2 95 mm Hg (80-100); SITE LR; TOTAL RESP RATE 16 resp/min; pH 7.34 (7.35-7.45)
[2017-01-08 06:01] LABS: PEEP 0 CM/H20; PRES. SUPPORT 36 CM/H2O; PRESSURE CONTROL VENTILATION 26 CM H20
[2017-01-08 06:13] LABS: INTER. NORMALIZED RATIO 1.1; PROTHROMBIN TIME 11.2 (9.2-11.2)
[2017-01-08 06:17] LABS: ANION GAP 10 MEQ/L (2-14); CHLORIDE 105 MEQ/L (99-109); GFR ESTIMATE (CALCULATED) 57 mL/min/; GLUCOSE 235 mg/dL (70-99); POTASSIUM 4.3 MEQ/L (3.7-5.4); SAMPLE HEMOLYSIS CHECK 0; SAMPLE ICTERIC CHECK 0; SAMPLE LIPEMIA CHECK 0; SODIUM 141 MEQ/L (136-147); UREA NITROGEN (BUN) 51 mg/dL (9-23)
[2017-01-08 06:27] LABS: EOSINOPHIL (%) 0 % (0-5); IMMATURE GRANULOCYTE (%) 0.6 % (0.0-0.7); IMMATURE GRANULOCYTE COUNT 0.1 K/uL; LYMPHOCYTE COUNT 0.6 K/uL (1.0-2.8); MONOCYTE (%) 1.8 % (3-12); MONOCYTE COUNT 0.2 K/uL (0-0.8); NEUTROPHIL (%) 91.2 % (45-76); NEUTROPHIL COUNT 8.1 K/uL (1.8-6.4)
[2017-01-08 10:59] LABS: POINT-OF-CARE METER ID UU13113748
[2017-01-08 16:53] LABS: POINT-OF-CARE METER ID UU13113748
[2017-01-08 19:20] LABS: POINT-OF-CARE METER ID UU14162636; POINT-OF-CARE USER ID ENVSME70
[2017-01-08 21:21] LABS: POINT-OF-CARE METER ID UU13113748
[2017-01-08 22:57] LABS: POINT-OF-CARE METER ID UU14174217
[2017-01-09] VITALS (24 sets, daily range): BP systolic 108–141; BP diastolic 52–65
[2017-01-09 03:09] LABS: BASE EXCESS 1.5 mEq/L (-3 to +3); BICARBONATE 27.6 mEq/L (22-26); CARBOXY HGB 1.5 % (0-5); COMMENTS - BLOOD GASES C+; DEVICE PB840; FI02 50 %; METHEMOGLOBIN 0.8 % (0-1.5); MODE BILEVEL; PCO2 50 mm Hg (35-45); PO2 91 mm Hg (80-100); SITE LR; pH 7.35 (7.35-7.45)
[2017-01-09 03:10] LABS: INSPIRATION TIME 0.6 seconds; MECHANICAL RATE 12 resp/min; PEEP 15 CM/H20; TOTAL RESP RATE 28 resp/min
[2017-01-09 05:41] LABS: BASE EXCESS 1.8 mEq/L (-3 to +3); BICARBONATE 27.7 mEq/L (22-26); CARBOXY HGB 1.4 % (0-5); METHEMOGLOBIN 0.9 % (0-1.5); PCO2 49 mm Hg (35-45); PO2 80 mm Hg (80-100); pH 7.36 (7.35-7.45)
[2017-01-09 05:42] LABS: COMMENTS - BLOOD GASES C+; DEVICE PB840; FI02 50 %; MECHANICAL RATE 16 resp/min; MODE AC; PEEP 10 CM/H20; SITE LB; TIDAL VOLUME 450 ML; TOTAL RESP RATE 16 resp/min
[2017-01-09 06:11] LABS: HEMATOCRIT 30.9 % (36.0-46.0); MCH 23.7 PG (29.0-34.0); MCHC 30.1 G/DL (30.0-36.0); MCV 78.8 FL (83-99); MEAN PLAT.VOLUME 10.3 uM^3 (9.5-12.4); NRBC (%) 0.5 /100 WBC (0-0); PLATELET COUNT 214 K/uL (156-360); RBC DIS.WIDTH-CV 19.6 % (11.8-14.6); RBC DIS.WIDTH-SD 56.1 % (39-53); RED BLOOD COUNT 3.92 M/uL (3.80-5.20); WHITE BLOOD COUNT 9.2 K/uL (4.1-10.2)
[2017-01-09 06:36] LABS: EOSINOPHIL (%) 0 % (0-5); IMMATURE GRANULOCYTE (%) 0.8 % (0.0-0.7); IMMATURE GRANULOCYTE COUNT 0.1 K/uL; LYMPHOCYTE COUNT 0.5 K/uL (1.0-2.8); MONOCYTE (%) 1.9 % (3-12); MONOCYTE COUNT 0.2 K/uL (0-0.8); NEUTROPHIL (%) 92.4 % (45-76); NEUTROPHIL COUNT 8.5 K/uL (1.8-6.4)
[2017-01-09 06:49] LABS: ANION GAP 11 MEQ/L (2-14); CHLORIDE 103 MEQ/L (99-109); GFR ESTIMATE (CALCULATED) > 59 mL/min/; GLUCOSE 235 mg/dL (70-99); POTASSIUM 4.4 MEQ/L (3.7-5.4); SAMPLE HEMOLYSIS CHECK 0; SAMPLE ICTERIC CHECK 0; SAMPLE LIPEMIA CHECK 0; SODIUM 140 MEQ/L (136-147); UREA NITROGEN (BUN) 58 mg/dL (9-23)
[2017-01-09 15:00] LABS: POINT-OF-CARE METER ID UU13113731
[2017-01-09 18:25] LABS: POINT-OF-CARE METER ID UU13113731
[2017-01-09 23:23] LABS: POINT-OF-CARE METER ID UU13113731
[2017-01-10] VITALS (18 sets, daily range): BP systolic 115–152; BP diastolic 47–76
[2017-01-10 04:05] LABS: POINT-OF-CARE METER ID UU13113748
[2017-01-10 06:11] LABS: POINT-OF-CARE METER ID UU13113748
[2017-01-10 06:35] LABS: HEMATOCRIT 28.8 % (36.0-46.0); MCH 23.5 PG (29.0-34.0); MCHC 30.2 G/DL (30.0-36.0); MCV 77.6 FL (83-99); MEAN PLAT.VOLUME 9.9 uM^3 (9.5-12.4); NRBC (%) 0.9 /100 WBC (0-0); PLATELET COUNT 169 K/uL (156-360); RBC DIS.WIDTH-CV 19.6 % (11.8-14.6); RBC DIS.WIDTH-SD 55.2 % (39-53); RED BLOOD COUNT 3.71 M/uL (3.80-5.20); WHITE BLOOD COUNT 6.9 K/uL (4.1-10.2)
[2017-01-10 06:47] LABS: EOSINOPHIL (%) 0 % (0-5); IMMATURE GRANULOCYTE (%) 0.6 % (0.0-0.7); LYMPHOCYTE COUNT 0.5 K/uL (1.0-2.8); MONOCYTE COUNT 0.1 K/uL (0-0.8); NEUTROPHIL (%) 90.8 % (45-76); NEUTROPHIL COUNT 6.3 K/uL (1.8-6.4)
[2017-01-10 06:57] LABS: ANION GAP 11 MEQ/L (2-14); CHLORIDE 105 MEQ/L (99-109); GFR ESTIMATE (CALCULATED) > 59 mL/min/; GLUCOSE 248 mg/dL (70-99); POTASSIUM 4.2 MEQ/L (3.7-5.4); SAMPLE HEMOLYSIS CHECK 0; SAMPLE ICTERIC CHECK 0; SAMPLE LIPEMIA CHECK 0; SODIUM 141 MEQ/L (136-147); UREA NITROGEN (BUN) 67 mg/dL (9-23)
[2017-01-10 10:40] LABS: POINT-OF-CARE METER ID UU13113748
[2017-01-10 14:22] LABS: POINT-OF-CARE METER ID UU13113748
[2017-01-10 16:44] LABS: BASE EXCESS 1.6 mEq/L (-3 to +3); BICARBONATE 26.6 mEq/L (22-26); CARBOXY HGB 1.9 % (0-5); COMMENTS - BLOOD GASES AC+; METHEMOGLOBIN 0.9 % (0-1.5); PCO2 43 mm Hg (35-45); PO2 58 mm Hg (80-100); SITE RR
[2017-01-10 16:45] LABS: CONTINUOUS POS AIRWAY PRESSURE 5 cm H2O; DEVICE 840 VENTILATOR; FI02 40 %; MODE TUBE COMPENSATION; TOTAL RESP RATE 31 resp/min
[2017-01-10 17:47] LABS: POINT-OF-CARE METER ID UU13113748
[2017-01-11] VITALS (24 sets, daily range): BP systolic 113–143; BP diastolic 49–63
[2017-01-11 02:22] LABS: POINT-OF-CARE METER ID UU13113803
[2017-01-11 05:26] LABS: POINT-OF-CARE METER ID UU13113803
[2017-01-11 05:32] LABS: BASE EXCESS 4.6 mEq/L (-3 to +3); BICARBONATE 29.2 mEq/L (22-26); CARBOXY HGB 1.4 % (0-5); METHEMOGLOBIN 1.2 % (0-1.5); PCO2 43 mm Hg (35-45); pH 7.44 (7.35-7.45)
[2017-01-11 05:33] LABS: COMMENTS - BLOOD GASES C+; DEVICE PB840; FI02 50 %; MECHANICAL RATE 16 resp/min; MODE ACVC+; PEEP 5 CM/H20; PO2 82 mm Hg (80-100); SITE LB; TIDAL VOLUME 450 ML; TOTAL RESP RATE 16 resp/min
[2017-01-11 05:58] LABS: HEMATOCRIT 27.6 % (36.0-46.0); MCH 23.7 PG (29.0-34.0); MCHC 30.8 G/DL (30.0-36.0); MCV 77.1 FL (83-99); MEAN PLAT.VOLUME 9.9 uM^3 (9.5-12.4); PLATELET COUNT 167 K/uL (156-360); RBC DIS.WIDTH-CV 19.5 % (11.8-14.6); RBC DIS.WIDTH-SD 54.1 % (39-53); RED BLOOD COUNT 3.58 M/uL (3.80-5.20); WHITE BLOOD COUNT 7.2 K/uL (4.1-10.2)
[2017-01-11 06:18] LABS: EOSINOPHIL (%) 0.1 % (0-5); IMMATURE GRANULOCYTE (%) 0.3 % (0.0-0.7); LYMPHOCYTE COUNT 0.5 K/uL (1.0-2.8); MONOCYTE (%) 2.1 % (3-12); MONOCYTE COUNT 0.2 K/uL (0-0.8); NEUTROPHIL (%) 90.3 % (45-76); NEUTROPHIL COUNT 6.5 K/uL (1.8-6.4)
[2017-01-11 06:25] LABS: ANION GAP 9 MEQ/L (2-14); CHLORIDE 107 MEQ/L (99-109); GFR ESTIMATE (CALCULATED) > 59 mL/min/; GLUCOSE 179 mg/dL (70-99); POTASSIUM 3.7 MEQ/L (3.7-5.4); SAMPLE HEMOLYSIS CHECK 0; SAMPLE ICTERIC CHECK 0; SAMPLE LIPEMIA CHECK 0; SODIUM 144 MEQ/L (136-147); UREA NITROGEN (BUN) 61 mg/dL (9-23)
[2017-01-11 09:31] LABS: POINT-OF-CARE METER ID UU13113803
[2017-01-11 17:04] LABS: POINT-OF-CARE METER ID UU13113803
[2017-01-11 18:15] LABS: POINT-OF-CARE METER ID UU13113803
[2017-01-11 22:15] LABS: POINT-OF-CARE METER ID UU13113803
[2017-01-12] VITALS (23 sets, daily range): BP systolic 94–144; BP diastolic 44–81
[2017-01-12 02:05] LABS: POINT-OF-CARE METER ID UU13113803
[2017-01-12 05:24] LABS: POINT-OF-CARE METER ID UU13113803
[2017-01-12 05:48] LABS: HEMATOCRIT 30.2 % (36.0-46.0); MCH 23.2 PG (29.0-34.0); MCHC 29.5 G/DL (30.0-36.0); MCV 78.9 FL (83-99); MEAN PLAT.VOLUME 10.1 uM^3 (9.5-12.4); PLATELET COUNT 163 K/uL (156-360); RBC DIS.WIDTH-SD 57.5 % (39-53); RED BLOOD COUNT 3.83 M/uL (3.80-5.20); WHITE BLOOD COUNT 8.2 K/uL (4.1-10.2)
[2017-01-12 06:13] LABS: ANION GAP 10 MEQ/L (2-14); CHLORIDE 110 MEQ/L (99-109); GFR ESTIMATE (CALCULATED) > 59 mL/min/; GLUCOSE 247 mg/dL (70-99); MAGNESIUM 2.4 mg/dl (1.3-2.7); POTASSIUM 3.9 MEQ/L (3.7-5.4); SAMPLE HEMOLYSIS CHECK 0; SAMPLE ICTERIC CHECK 0; SAMPLE LIPEMIA CHECK 0; SODIUM 146 MEQ/L (136-147); UREA NITROGEN (BUN) 61 mg/dL (9-23)
[2017-01-12 11:30] LABS: POINT-OF-CARE METER ID UU13113803
[2017-01-12 13:24] LABS: POINT-OF-CARE METER ID UU13113803
[2017-01-12 18:02] LABS: POINT-OF-CARE METER ID UU13113803
[2017-01-12 23:02] LABS: POINT-OF-CARE METER ID UU13113803
[2017-01-13] VITALS (22 sets, daily range): BP systolic 111–136; BP diastolic 45–67
[2017-01-13 03:25] LABS: POINT-OF-CARE METER ID UU13113803
[2017-01-13 05:53] LABS: HEMATOCRIT 29.9 % (36.0-46.0); MCH 23.4 PG (29.0-34.0); MCHC 30.1 G/DL (30.0-36.0); MCV 77.9 FL (83-99); MEAN PLAT.VOLUME 9.9 uM^3 (9.5-12.4); PLATELET COUNT 158 K/uL (156-360); RBC DIS.WIDTH-CV 20.1 % (11.8-14.6); RBC DIS.WIDTH-SD 56.5 % (39-53); RED BLOOD COUNT 3.84 M/uL (3.80-5.20); WHITE BLOOD COUNT 8.6 K/uL (4.1-10.2)
[2017-01-13 06:21] LABS: ANION GAP 8 MEQ/L (2-14); CHLORIDE 113 MEQ/L (99-109); GFR ESTIMATE (CALCULATED) > 59 mL/min/; GLUCOSE 152 mg/dL (70-99); MAGNESIUM 2.2 mg/dl (1.3-2.7); SAMPLE HEMOLYSIS CHECK 0; SAMPLE ICTERIC CHECK 0; SAMPLE LIPEMIA CHECK 0; SODIUM 147 MEQ/L (136-147); UREA NITROGEN (BUN) 57 mg/dL (9-23)
[2017-01-13 10:48] LABS: POINT-OF-CARE METER ID UU13113803
[2017-01-13 17:16] LABS: POINT-OF-CARE METER ID UU14162636
[2017-01-13 21:18] LABS: POINT-OF-CARE METER ID UU13113803
[2017-01-13 22:19] LABS: POINT-OF-CARE METER ID UU13113803
[2017-01-14] VITALS (13 sets, daily range): BP systolic 99–135; BP diastolic 51–66
[2017-01-14 05:52] LABS: HEMATOCRIT 29.3 % (36.0-46.0); MCH 23.7 PG (29.0-34.0); MCHC 30.4 G/DL (30.0-36.0); MCV 78.1 FL (83-99); MEAN PLAT.VOLUME 10.3 uM^3 (9.5-12.4); PLATELET COUNT 152 K/uL (156-360); RBC DIS.WIDTH-CV 20.2 % (11.8-14.6); RBC DIS.WIDTH-SD 57.1 % (39-53); RED BLOOD COUNT 3.75 M/uL (3.80-5.20); WHITE BLOOD COUNT 6.3 K/uL (4.1-10.2)
[2017-01-14 06:10] LABS: ANION GAP 7 MEQ/L (2-14); CHLORIDE 111 MEQ/L (99-109); GFR ESTIMATE (CALCULATED) > 59 mL/min/; GLUCOSE 139 mg/dL (70-99); MAGNESIUM 2.3 mg/dl (1.3-2.7); POTASSIUM 4.4 MEQ/L (3.7-5.4); SAMPLE HEMOLYSIS CHECK 0; SAMPLE ICTERIC CHECK 0; SAMPLE LIPEMIA CHECK 0; SODIUM 145 MEQ/L (136-147); UREA NITROGEN (BUN) 53 mg/dL (9-23)
[2017-01-14 09:16] LABS: POINT-OF-CARE METER ID UU13113731
[2017-01-14 12:07] LABS: POINT-OF-CARE METER ID UU13113731
[2017-01-14 17:39] LABS: POINT-OF-CARE METER ID UU13113731
[2017-01-14 22:27] LABS: POINT-OF-CARE METER ID UU14174217
[2017-01-15] VITALS (7 sets, daily range): BP systolic 123–159; BP diastolic 51–67
[2017-01-15 06:25] LABS: HEMATOCRIT 28.9 % (36.0-46.0); MCHC 29.4 G/DL (30.0-36.0); MCV 78.1 FL (83-99); MEAN PLAT.VOLUME 10.1 uM^3 (9.5-12.4); PLATELET COUNT UNABLE TO REPORT K/uL (156-360); RBC DIS.WIDTH-CV 20.4 % (11.8-14.6); RBC DIS.WIDTH-SD 57.4 % (39-53); WHITE BLOOD COUNT 6.1 K/uL (4.1-10.2)
[2017-01-15 06:32] LABS: ANION GAP 9 MEQ/L (2-14); CHLORIDE 111 MEQ/L (99-109); GFR ESTIMATE (CALCULATED) > 59 mL/min/; GLUCOSE 183 mg/dL (70-99); MAGNESIUM 2.1 mg/dl (1.3-2.7); POTASSIUM 4.5 MEQ/L (3.7-5.4); SAMPLE HEMOLYSIS CHECK 0; SAMPLE ICTERIC CHECK 0; SAMPLE LIPEMIA CHECK 0; SODIUM 145 MEQ/L (136-147); UREA NITROGEN (BUN) 49 mg/dL (9-23)
[2017-01-15 09:14] LABS: POINT-OF-CARE METER ID UU13113731
[2017-01-15 17:38] LABS: POINT-OF-CARE METER ID UU13113731
[2017-01-15 21:18] LABS: POINT-OF-CARE METER ID UU13113731
[2017-01-16] VITALS: BP 120/58
[2017-01-16 04:00] VITALS: BP 130/62
[2017-01-16 06:15] LABS: HEMATOCRIT 28.6 % (36.0-46.0); MCHC 29.7 G/DL (30.0-36.0); MCV 77.5 FL (83-99); RBC DIS.WIDTH-CV 20.9 % (11.8-14.6); RBC DIS.WIDTH-SD 57.5 % (39-53); RED BLOOD COUNT 3.69 M/uL (3.80-5.20); WHITE BLOOD COUNT 6.7 K/uL (4.1-10.2)
[2017-01-16 06:40] LABS: ANION GAP 9 MEQ/L (2-14); CHLORIDE 108 MEQ/L (99-109); GFR ESTIMATE (CALCULATED) > 59 mL/min/; GLUCOSE 65 mg/dL (70-99); MAGNESIUM 1.9 mg/dl (1.3-2.7); POTASSIUM 3.9 MEQ/L (3.7-5.4); SAMPLE HEMOLYSIS CHECK 0; SAMPLE ICTERIC CHECK 0; SAMPLE LIPEMIA CHECK 0; SODIUM 145 MEQ/L (136-147); UREA NITROGEN (BUN) 43 mg/dL (9-23)
[2017-01-16 08:00] VITALS: BP 143/64
[2017-01-16 09:23] LABS: POINT-OF-CARE METER ID UU13113731
[2017-01-16 11:28] LABS: MEAN PLAT.VOLUME 10.1 uM^3 (9.5-12.4)
[2017-01-16 11:31] LABS: PLATELET COUNT 162 K/uL (156-360)
[2017-01-16 12:00] VITALS: BP 134/73
[2017-01-16 16:00] VITALS: BP 119/55
[2017-01-16 19:42] VITALS: BP 136/76
[2017-01-17] VITALS: BP 122/58
[2017-01-17 04:00] VITALS: BP 131/59
[2017-01-17 07:33] VITALS: BP 127/70
[2017-01-17 07:38] LABS: HEMATOCRIT 29.5 % (36.0-46.0); MCH 23.8 PG (29.0-34.0); MCHC 30.5 G/DL (30.0-36.0); MEAN PLAT.VOLUME 9.8 uM^3 (9.5-12.4); PLATELET COUNT 162 K/uL (156-360); RBC DIS.WIDTH-CV 21.6 % (11.8-14.6); RED BLOOD COUNT 3.78 M/uL (3.80-5.20); WHITE BLOOD COUNT 6.7 K/uL (4.1-10.2)
[2017-01-17 08:00] LABS: ANION GAP 8 MEQ/L (2-14); CHLORIDE 108 MEQ/L (99-109); GFR ESTIMATE (CALCULATED) > 59 mL/min/; GLUCOSE 75 mg/dL (70-99); SAMPLE HEMOLYSIS CHECK 0; SAMPLE ICTERIC CHECK 0; SAMPLE LIPEMIA CHECK 0; SODIUM 145 MEQ/L (136-147); UREA NITROGEN (BUN) 36 mg/dL (9-23)
[2017-01-17 11:17] LABS: POINT-OF-CARE METER ID UU14174225
[2017-01-17 14:59] LABS: BASE EXCESS 6.7 mEq/L (-3 to +3); BICARBONATE 30.4 mEq/L (22-26); CARBOXY HGB 2.2 % (0-5); COMMENTS - BLOOD GASES A+C+; DEVICE NC; METHEMOGLOBIN 1.2 % (0-1.5); O2 FLOW 6 L/MIN; PCO2 39 mm Hg (35-45); PO2 75 mm Hg (80-100); SITE LR
[2017-01-17 15:00] LABS: TOTAL RESP RATE 17 resp/min
[2017-01-17 15:42] VITALS: BP 125/65
[2017-01-17 21:54] LABS: POINT-OF-CARE METER ID UU14174225
[2017-01-18 00:15] VITALS: BP 143/73
[2017-01-18 06:36] LABS: HEMATOCRIT 29.5 % (36.0-46.0); MCH 23.4 PG (29.0-34.0); MCHC 29.2 G/DL (30.0-36.0); MCV 80.2 FL (83-99); MEAN PLAT.VOLUME 10.1 uM^3 (9.5-12.4); PLATELET COUNT 170 K/uL (156-360); RBC DIS.WIDTH-CV 21.7 % (11.8-14.6); RBC DIS.WIDTH-SD 62.8 % (39-53); RED BLOOD COUNT 3.68 M/uL (3.80-5.20); WHITE BLOOD COUNT 5.2 K/uL (4.1-10.2)
[2017-01-18 07:05] LABS: ANION GAP 8 MEQ/L (2-14); CHLORIDE 109 MEQ/L (99-109); GFR ESTIMATE (CALCULATED) > 59 mL/min/; GLUCOSE 74 mg/dL (70-99); MAGNESIUM 2.1 mg/dl (1.3-2.7); SAMPLE HEMOLYSIS CHECK 0; SAMPLE ICTERIC CHECK 0; SAMPLE LIPEMIA CHECK 0; SODIUM 149 MEQ/L (136-147); UREA NITROGEN (BUN) 34 mg/dL (9-23)
[2017-01-18 07:52] LABS: POINT-OF-CARE METER ID UU14174225
[2017-01-18 08:14] VITALS: BP 158/77
[2017-01-18 08:33] LABS: POINT-OF-CARE METER ID UU14174225
[2017-01-18 12:47] LABS: POINT-OF-CARE METER ID UU14174225
[2017-01-18 17:21] VITALS: BP 114/55
[2017-01-18 19:49] VITALS: BP 115/61
[2017-01-19 07:17] LABS: HEMATOCRIT 27.3 % (36.0-46.0); MCH 23.9 PG (29.0-34.0); MCHC 29.7 G/DL (30.0-36.0); MCV 80.5 FL (83-99); MEAN PLAT.VOLUME 9.8 uM^3 (9.5-12.4); PLATELET COUNT 170 K/uL (156-360); RBC DIS.WIDTH-CV 21.8 % (11.8-14.6); RBC DIS.WIDTH-SD 63.4 % (39-53); RED BLOOD COUNT 3.39 M/uL (3.80-5.20); WHITE BLOOD COUNT 5.4 K/uL (4.1-10.2)
[2017-01-19 07:47] LABS: ANION GAP 10 MEQ/L (2-14); CHLORIDE 105 MEQ/L (99-109); GFR ESTIMATE (CALCULATED) > 59 mL/min/; POTASSIUM 4.5 MEQ/L (3.7-5.4); SAMPLE HEMOLYSIS CHECK 1; SAMPLE ICTERIC CHECK 0; SAMPLE LIPEMIA CHECK 0; SODIUM 145 MEQ/L (136-147); UREA NITROGEN (BUN) 38 mg/dL (9-23)
[2017-01-19 07:54] LABS: GLUCOSE 122 mg/dL (70-99)
[2017-01-19 08:30] VITALS: BP 132/64
[2017-01-19 11:16] LABS: POINT-OF-CARE METER ID UU14174225
[2017-01-19 16:49] LABS: POINT-OF-CARE METER ID UU14174225
[2017-01-19 17:16] VITALS: BP 136/61
[2017-01-19 23:49] VITALS: BP 160/73
[2017-01-20 07:55] VITALS: BP 125/59
[2017-01-20 09:59] LABS: HEMATOCRIT 31.7 % (36.0-46.0); MCHC 29.3 G/DL (30.0-36.0); MCV 81.7 FL (83-99); MEAN PLAT.VOLUME 10.1 uM^3 (9.5-12.4); PLATELET COUNT 206 K/uL (156-360); RBC DIS.WIDTH-CV 21.8 % (11.8-14.6); RBC DIS.WIDTH-SD 64.2 % (39-53); RED BLOOD COUNT 3.88 M/uL (3.80-5.20)
[2017-01-20 10:00] LABS: WHITE BLOOD COUNT 7.7 K/uL (4.1-10.2)
[2017-01-20 10:20] LABS: ANION GAP 8 MEQ/L (2-14); CHLORIDE 105 MEQ/L (99-109); GFR ESTIMATE (CALCULATED) > 59 mL/min/; POTASSIUM 3.8 MEQ/L (3.7-5.4); SAMPLE HEMOLYSIS CHECK 0; SAMPLE ICTERIC CHECK 0; SAMPLE LIPEMIA CHECK 0; SODIUM 147 MEQ/L (136-147); UREA NITROGEN (BUN) 31 mg/dL (9-23)
[2017-01-20 10:21] LABS: GLUCOSE 82 mg/dL (70-99)
[2017-01-20 13:26] LABS: POINT-OF-CARE METER ID UU14188625
[2017-01-20 15:00] VITALS: BP 118/71
[2017-01-21 00:15] VITALS: BP 143/83
[2017-01-21 12:49] LABS: POINT-OF-CARE METER ID UU14188625
[2017-01-21 15:28] VITALS: BP 136/62
[2017-01-21 17:06] LABS: POINT-OF-CARE METER ID UU14174225
[2017-01-22] VITALS: BP 119/58; BP 19/58
[2017-01-22 06:46] LABS: HEMATOCRIT 33.2 % (36.0-46.0); MCH 22.9 PG (29.0-34.0); MCHC 28.3 G/DL (30.0-36.0); MEAN PLAT.VOLUME 9.3 uM^3 (9.5-12.4); PLATELET COUNT 182 K/uL (156-360); RBC DIS.WIDTH-CV 21.8 % (11.8-14.6); RBC DIS.WIDTH-SD 64.2 % (39-53); WHITE BLOOD COUNT 5.7 K/uL (4.1-10.2)
[2017-01-22 06:58] LABS: EOSINOPHIL (%) 6.2 % (0-5); EOSINOPHIL COUNT 0.4 K/uL (0-0.3); IMMATURE GRANULOCYTE (%) 0.4 % (0.0-0.7); LYMPHOCYTE COUNT 0.9 K/uL (1.0-2.8); MONOCYTE (%) 3.2 % (3-12); MONOCYTE COUNT 0.2 K/uL (0-0.8); NEUTROPHIL (%) 75.1 % (45-76); NEUTROPHIL COUNT 4.3 K/uL (1.8-6.4)
[2017-01-22 07:09] LABS: ANION GAP 9 MEQ/L (2-14); CHLORIDE 104 MEQ/L (99-109); GFR ESTIMATE (CALCULATED) > 59 mL/min/; GLUCOSE 58 mg/dL (70-99); POTASSIUM 3.4 MEQ/L (3.7-5.4); SAMPLE HEMOLYSIS CHECK 0; SAMPLE ICTERIC CHECK 0; SAMPLE LIPEMIA CHECK 0; SODIUM 147 MEQ/L (136-147); UREA NITROGEN (BUN) 30 mg/dL (9-23)
[2017-01-22 08:27] VITALS: BP 139/68
[2017-01-22 09:17] LABS: POINT-OF-CARE METER ID UU14174225
[2017-01-22] MEDS ORDERED: FUROSEMIDE20 MG PO (14:28)
[2017-01-22] MEDS ORDERED: PREDNISONE10 MG PO (14:30)
[2017-01-22] MEDS ORDERED: LEVEMIR100 UNIT/2 SC (14:32)
[2017-01-22] MEDS ORDERED: DUONEB 2.5-0.5 M3 ML AEROSOL (14:35)
[2017-01-22] MEDS ORDERED: AMLODIPINE BESY10 MG PO (14:35)
[2017-01-22] MEDS ORDERED: BENTYL20 MG PO (14:35)
[2017-01-22] MEDS ORDERED: NOVOLOG PE100 UNITS/ SC (14:35)
[2017-01-22] MEDS ORDERED: FERROUS SULFAT325 MG PO (14:35)
[2017-01-22] MEDS ORDERED: MYCOPHENOLATE250 MG PO (14:47)
== END 2017-01-22 16:35 | disposition designated cancer center or children's hospital (05) | DRG 207 ==
LOC: EME 17:09 → EDOF 19:55 → 5SOUTH 19:55 → 4WEST 19:55 → 5SOUTH 21:17 → 4WEST 12-25 05:00 → 4EAST 01-05 23:39 → 4WEST 01-06 07:47 → 5SOUTH 01-16 19:42
PROVIDERS: Emergency Medicine; Hospitalist; Internal Medicine; Internal Medicine Gastroenterology; Internal Medicine Nephrology; Internal Medicine Pulmonary Disease; Nurse Practitioner Adult Health; Physician Assistant; Specialist; Student in an Organized Health Care Education/Training Program; Surgery
DX: J96.21 Acute and chronic respiratory failure with hypoxia (principal); M33.91 Dermatopolymyositis, unspecified with respiratory involvement; J84.17 Other interstitial pulmonary diseases with fibrosis in diseases classified elsewhere; J44.0 Chronic obstructive pulmonary disease with (acute) lower respiratory infection; J15.1 Pneumonia due to Pseudomonas; J44.1 Chronic obstructive pulmonary disease with (acute) exacerbation; Z99.81 Dependence on supplemental oxygen; Y95 Nosocomial condition; E87.0 Hyperosmolality and hypernatremia; R19.7 Diarrhea, unspecified; R19.5 Other fecal abnormalities; I50.9 Heart failure, unspecified; E11.65 Type 2 diabetes mellitus with hyperglycemia; I48.0 Paroxysmal atrial fibrillation; E66.9 Obesity, unspecified; Z68.42 Body mass index [BMI] 45.0-49.9, adult; E78.00 Pure hypercholesterolemia, unspecified; I49.5 Sick sinus syndrome; Z95.0 Presence of cardiac pacemaker; I10 Essential (primary) hypertension; D12.6 Benign neoplasm of colon, unspecified; I25.10 Atherosclerotic heart disease of native coronary artery without angina pectoris; I25.2 Old myocardial infarction; E03.9 Hypothyroidism, unspecified; E78.5 Hyperlipidemia, unspecified; D64.9 Anemia, unspecified; E61.9 Deficiency of nutrient element, unspecified; K21.9 Gastro-esophageal reflux disease without esophagitis; F32.9 Major depressive disorder, single episode, unspecified; Z78.1 Physical restraint status; Z79.01 Long term (current) use of anticoagulants; Z98.61 Coronary angioplasty status; Z96.651 Presence of right artificial knee joint; Z87.891 Personal history of nicotine dependence
CPT/HCPCS: 36600; 71010; 71020; 71275; 80048; 80053; 80202; 81003; 82272; 82803; 82948; 83516 90; 83605; 83630; 83735; 84100; 84145 90; 84484; 85025; 85027; 85379; 85610; 85651; 86038; 86235; 86430; 87040; 87070; 87077; 87086; 87177; 87186; 87205; 87449; 87493; 87502; 87641; 93005; 94002; 94003; 94010; 94640; 94640 76; 94760; 94799; 97530 GO; 97530 GP; 99202; 99281; 99285; C9113; J0456; J0692; J1100; J1815; J1940; J2060; J2250; J2270; J2543; J2704; J2765; J2920; J2930; J3010; J3370; J3475; J7050; J7512; J7517; J7644; S0028

== ENCOUNTER 2017-01-29 20:43 | Inpatient (IN) | payer OTHER ==
[~2017-01-29] VITALS: Ht 152.4 cm; Wt 112.0 kg
[~2017-01-29 20:43] MED LIST changes: +AMLODIPINE BESY10 MG PO; +BENTYL20 MG PO; +BREO ELLIPTA 21 EACH IH; +DUONEB 2.5-0.5 M3 ML AEROSOL; +FERROUS SULFAT325 MG PO; +FUROSEMIDE20 MG PO; +LEVEMIR100 UNIT/2 SC; +MYCOPHENOLATE250 MG PO; +NOVOLOG PE100 UNITS/ SC; +PROVENTIL,2.5 MG/3 M IH
[2017-01-29 21:03] LABS: BASE EXCESS 8.5 mEq/L (-3 to +3); BICARBONATE 33.4 mEq/L (22-26); CARBOXY HGB 2.7 % (0-5); COMMENTS - BLOOD GASES C+A+; DEVICE NIV; FI02 100 %; MODE SPONT; PCO2 47 mm Hg (35-45); PEEP 5 CM/H20; PO2 70 mm Hg (80-100); PRES. SUPPORT 16 CM/H2O; SITE RR; TOTAL RESP RATE 41 resp/min; pH 7.46 (7.35-7.45)
[2017-01-29 21:17] LABS: HEMATOCRIT 34.8 % (36.0-46.0); MCH 23.8 PG (29.0-34.0); MCHC 29.6 G/DL (30.0-36.0); MCV 80.4 FL (83-99); MEAN PLAT.VOLUME 9.7 uM^3 (9.5-12.4); PLATELET COUNT 183 K/uL (156-360); RBC DIS.WIDTH-CV 21.4 % (11.8-14.6); RED BLOOD COUNT 4.33 M/uL (3.80-5.20); WHITE BLOOD COUNT 4.7 K/uL (4.1-10.2)
[2017-01-29 21:22] LABS: EOSINOPHIL (%) 0.4 % (0-5); IMMATURE GRANULOCYTE (%) 0.9 % (0.0-0.7); IMMATURE GRANULOCYTE COUNT 0.4 K/uL; MONOCYTE (%) 4.5 % (3-12); MONOCYTE COUNT 0.2 K/uL (0-0.8); NEUTROPHIL (%) 72.2 % (45-76); NEUTROPHIL COUNT 3.4 K/uL (1.8-6.4)
[2017-01-29 21:28] LABS: CHLORIDE 105 mEq/L (99-109); POTASSIUM 4.5 mEq/L (3.7-5.4); SODIUM 143 mEq/L (136-147)
[2017-01-29 21:30] LABS: GLUCOSE 254 mg/dL (70-99)
[2017-01-29 21:31] LABS: ANION GAP 11 MEQ/L (2-14)
[2017-01-29 21:34] LABS: GFR ESTIMATE (CALCULATED) 57 mL/min/
[2017-01-29 21:35] LABS: UREA NITROGEN (BUN) 34 mg/dL (9-23)
[2017-01-29 21:38] LABS: TROP-I INTERPRETATION NEGATIVE; TROPONIN-I 0.11 ng/mL (0.0-0.30)
[2017-01-29 21:57] LABS: BASE EXCESS 7.5 mEq/L (-3 to +3); CARBOXY HGB 2.1 % (0-5); METHEMOGLOBIN 0.8 % (0-1.5); PCO2 44 mm Hg (35-45); PO2 69 mm Hg (80-100); pH 7.47 (7.35-7.45)
[2017-01-29 22:39] LABS: ADD MIUA? YES; BILIRUBIN NEGATIVE; BLOOD LARGE; COLOR YELLOW ((YELLOW)); GLUCOSE (STRIP) NEGATIVE; KETONES NEGATIVE; LEUKOCYTES TRACE; NITRITE NEGATIVE; PROTEIN (STRIP) NEGATIVE; SPECIFIC GRAVITY 1.012 (1.000-1.030); UROBILINOGEN 0.2 MG/DL (0.2-1.0)
[2017-01-29 22:57] LABS: BACTERIA NONE SEEN /HPF; EPITHELIAL CELLS RARE /HPF; HYALINE CASTS 0-5 /LPF; MUCUS 1+ /LPF; UCUL ADDED? NO; WHITE BLOOD CELLS 0-5 /HPF (0-5)
[2017-01-29 23:05] LABS: COMMENTS - BLOOD GASES C+A+; DEVICE NIV; FI02 80 %; SITE RR
[2017-01-29 23:05] LABS: BASE EXCESS 6.4 mEq/L (-3 to +3); BICARBONATE 31.8 mEq/L (22-26); CARBOXY HGB 2.4 % (0-5); METHEMOGLOBIN 1.3 % (0-1.5); PCO2 49 mm Hg (35-45); PO2 68 mm Hg (80-100); pH 7.42 (7.35-7.45)
[2017-01-29 23:06] LABS: MODE SPONT; PEEP 5 CM/H20; PRES. SUPPORT 16 CM/H2O; TOTAL RESP RATE 42 resp/min
[2017-01-29 23:06] LABS: COMMENTS - BLOOD GASES C+A+; DEVICE VENTILATOR; FI02 80 %; MECHANICAL RATE 18 resp/min; MODE AC; PEEP 5 CM/H20; SITE RR; TIDAL VOLUME 400 ML; TOTAL RESP RATE 26 resp/min
[2017-01-30] VITALS (27 sets, daily range): BP systolic 98–143; BP diastolic 47–111
[2017-01-30] MEDS ORDERED: LEVO-T88 MCG PO (01:01)
[2017-01-30] MEDS ORDERED: NORVASC5 MG PO (01:02)
[2017-01-30] MEDS ORDERED: LO-DOSE ASPIRIN81 M2 PO (01:03)
[2017-01-30] MEDS ORDERED: DOCUSATE SODIU100 MG PO (01:04)
[2017-01-30] MEDS ORDERED: ASTEPRO 0.15%30 ML BOTH NARES (01:04)
[2017-01-30] MEDS ORDERED: ELIQUIS5 MG PO (01:05)
[2017-01-30] MEDS ORDERED: NEXIUM40 MG PO (01:06)
[2017-01-30] MEDS ORDERED: LASIX20 MG PO (01:06)
[2017-01-30] MEDS ORDERED: KLOR-CON20 MEQ PO (01:08)
[2017-01-30] MEDS ORDERED: CELLCEPT250 MG PO (01:08)
[2017-01-30] MEDS ORDERED: ZOLOFT100 MG PO (01:09)
[2017-01-30] MEDS ORDERED: PREDNISONE10 MG PO (01:09)
[2017-01-30] MEDS ORDERED: COREG12.5 M1 PO (01:10)
[2017-01-30] MEDS ORDERED: LEVEMIR FL100 UNIT/1 SC (01:11)
[2017-01-30] MEDS ORDERED: NOVOLOG PE100 UNITS/ SC (01:18)
[2017-01-30] MEDS ORDERED: ORAZINC220 MG PO (01:23)
[2017-01-30] MEDS ORDERED: XANAX0.25 MG PO (01:23)
[2017-01-30] MEDS ORDERED: LESCOL20 MG PO (01:24)
[2017-01-30] MEDS ORDERED: OXYCODONE HCL10 MG PO (01:25)
[2017-01-30] MEDS ORDERED: SENNA8.6 MG PO (01:25)
[2017-01-30] MEDS ORDERED: FEOSOL325 MG PO (01:27)
[2017-01-30] MEDS ORDERED: DICYCLOMINE HCL20 MG PO (01:27)
[2017-01-30 02:08] LABS: METH RESISTANT S AUREUS PCR NEGATIVE (NEGATIVE)
[2017-01-30 02:10] LABS: PROBE CHECK PASS; SPECIMEN PROCESSING CONTROL PASS
[2017-01-30 02:30] LABS: INFLUENZA A VIRAL ANTIGEN NEGATIVE; INFLUENZA B VIRAL ANTIGEN NEGATIVE
[2017-01-30 06:19] LABS: ALKALINE PHOSPHATASE 120 IU/L (3-129); ANION GAP 11 MEQ/L (2-14); CHLORIDE 101 MEQ/L (99-109); GFR ESTIMATE (CALCULATED) > 59 mL/min/; GLUCOSE 284 mg/dL (70-99); MAGNESIUM 1.8 mg/dl (1.3-2.7); POTASSIUM 3.8 MEQ/L (3.7-5.4); SAMPLE HEMOLYSIS CHECK 0; SAMPLE ICTERIC CHECK 0; SAMPLE LIPEMIA CHECK 0; SODIUM 141 MEQ/L (136-147); TOTAL BILIRUBIN 0.6 MG/DL (0.0-1.0); UREA NITROGEN (BUN) 34 mg/dL (9-23)
[2017-01-30 06:55] LABS: EOSINOPHIL (%) 0 % (0-5); HEMATOCRIT 32.4 % (36.0-46.0); IMMATURE GRANULOCYTE (%) 0.3 % (0.0-0.7); LYMPHOCYTE COUNT 0.8 K/uL (1.0-2.8); MCH 23.9 PG (29.0-34.0); MCV 82.2 FL (83-99); MONOCYTE COUNT 0.1 K/uL (0-0.8); NEUTROPHIL (%) 72.2 % (45-76); NEUTROPHIL COUNT 2.2 K/uL (1.8-6.4); RBC DIS.WIDTH-CV 20.6 % (11.8-14.6); RED BLOOD COUNT 3.94 M/uL (3.80-5.20)
[2017-01-30 06:56] LABS: WHITE BLOOD COUNT 3.1 K/uL (4.1-10.2)
[2017-01-30 07:49] LABS: PLAT.SUFFICIENCY DECREASED; USER ID MCB
[2017-01-30 17:09] LABS: POINT-OF-CARE METER ID UU14162636
[2017-01-31] VITALS (24 sets, daily range): BP systolic 86–158; BP diastolic 41–68
[2017-01-31 00:02] LABS: POINT-OF-CARE METER ID UU13113731
[2017-01-31 01:12] LABS: HEMATOCRIT 30.6 % (36.0-46.0); MCH 23.8 PG (29.0-34.0); MCHC 29.7 G/DL (30.0-36.0); MCV 79.9 FL (83-99); RBC DIS.WIDTH-CV 20.4 % (11.8-14.6); RBC DIS.WIDTH-SD 56.9 % (39-53); RED BLOOD COUNT 3.83 M/uL (3.80-5.20); WHITE BLOOD COUNT 3.7 K/uL (4.1-10.2)
[2017-01-31 01:14] LABS: EOSINOPHIL (%) 0.3 % (0-5); IMMATURE GRANULOCYTE (%) 0.3 % (0.0-0.7); IMMATURE GRANULOCYTE COUNT 0.1 K/uL; LYMPHOCYTE COUNT 0.9 K/uL (1.0-2.8); MONOCYTE (%) 5.2 % (3-12); MONOCYTE COUNT 0.2 K/uL (0-0.8); NEUTROPHIL (%) 70.1 % (45-76); NEUTROPHIL COUNT 2.6 K/uL (1.8-6.4)
[2017-01-31 01:19] LABS: CHLORIDE 106 mEq/L (99-109); POTASSIUM 3.8 mEq/L (3.7-5.4); SODIUM 144 mEq/L (136-147)
[2017-01-31 01:20] LABS: MAGNESIUM 1.6 mg/dL (1.3-2.7)
[2017-01-31 01:21] LABS: GLUCOSE 177 mg/dL (70-99)
[2017-01-31 01:23] LABS: ANION GAP 13 MEQ/L (2-14)
[2017-01-31 01:25] LABS: GFR ESTIMATE (CALCULATED) > 59 mL/min/
[2017-01-31 01:26] LABS: UREA NITROGEN (BUN) 42 mg/dL (9-23)
[2017-01-31 02:13] LABS: IRON 20 MCG/DL (35-150)
[2017-01-31 02:14] LABS: PLAT.SUFFICIENCY DECREASED
[2017-01-31 02:23] LABS: UR CREATININE CONCENTRATION 149.6 MG/DL
[2017-01-31 02:36] LABS: PLATELET COUNT UNABLE TO REPORT K/uL (156-360)
[2017-01-31 02:36] LABS: BASE EXCESS 6.7 mEq/L (-3 to +3); BICARBONATE 30.4 mEq/L (22-26); CARBOXY HGB 1.9 % (0-5); METHEMOGLOBIN 1.3 % (0-1.5); PCO2 39 mm Hg (35-45); PO2 84 mm Hg (80-100)
[2017-01-31 02:37] LABS: COMMENTS - BLOOD GASES C+; DEVICE 840; FI02 80 %; INSPIRATION TIME 0.7 seconds; MECHANICAL RATE 18 resp/min; MODE AC; PEEP 5 CM/H20; SITE LR; TIDAL VOLUME 350 ML; TOTAL RESP RATE 37 resp/min
[2017-01-31 05:47] LABS: POINT-OF-CARE METER ID UU13113803
[2017-01-31 08:13] LABS: BICARBONATE 29.6 mEq/L (22-26); CARBOXY HGB 2.2 % (0-5); COMMENTS - BLOOD GASES A+C+; DEVICE 840; FI02 70 %; METHEMOGLOBIN 1.1 % (0-1.5); MODE AC/VC; PCO2 38 mm Hg (35-45); PO2 101 mm Hg (80-100); SITE LR
[2017-01-31 08:14] LABS: INSPIRATION TIME 0.8 seconds; MECHANICAL RATE 18 resp/min; PEEP 5 CM/H20; TIDAL VOLUME 350 ML; TOTAL RESP RATE 30 resp/min
[2017-01-31 10:53] LABS: ANION GAP 10 MEQ/L (2-14); CHLORIDE 101 MEQ/L (99-109); GFR ESTIMATE (CALCULATED) > 59 mL/min/; GLUCOSE 203 mg/dL (70-99); POTASSIUM 3.2 MEQ/L (3.7-5.4); SAMPLE HEMOLYSIS CHECK 0; SAMPLE ICTERIC CHECK 0; SAMPLE LIPEMIA CHECK 0; SODIUM 139 MEQ/L (136-147); UREA NITROGEN (BUN) 45 mg/dL (9-23)
[2017-01-31 12:02] LABS: MAGNESIUM 1.7 mg/dl (1.3-2.7)
[2017-01-31 12:39] LABS: POINT-OF-CARE METER ID UU13113803
[2017-01-31 18:22] LABS: POINT-OF-CARE METER ID UU14174217
[2017-01-31 20:45] LABS: BASE EXCESS 3.9 mEq/L (-3 to +3); BICARBONATE 29.6 mEq/L (22-26); CARBOXY HGB 3.8 % (0-5); METHEMOGLOBIN 0.6 % (0-1.5)
[2017-01-31 20:46] LABS: COMMENTS - BLOOD GASES C; DEVICE 840; FI02 50 %; MECHANICAL RATE 11 resp/min; MODE AC/PC; PCO2 50 mm Hg (35-45); PEEP 5 CM/H20; PO2 58 mm Hg (80-100); PRESSURE CONTROL VENTILATION 20 CM H20; SITE RB; TOTAL RESP RATE 22 resp/min; pH 7.38 (7.35-7.45)
[2017-01-31 22:02] LABS: BASE EXCESS 3.1 mEq/L (-3 to +3); BICARBONATE 28.5 mEq/L (22-26); CARBOXY HGB 3.8 % (0-5); METHEMOGLOBIN 0.2 % (0-1.5); PCO2 47 mm Hg (35-45); pH 7.39 (7.35-7.45)
[2017-01-31 22:03] LABS: COMMENTS - BLOOD GASES C+; DEVICE 840; FI02 75 %; MECHANICAL RATE 11 resp/min; MODE AC/PC; PEEP 8 CM/H20; PO2 84 mm Hg (80-100); PRESSURE CONTROL VENTILATION 20 CM H20; SITE LR ALINE; TOTAL RESP RATE 18 resp/min
[2017-01-31 23:58] LABS: POINT-OF-CARE METER ID UU13113803
[2017-02-01] VITALS (17 sets, daily range): BP systolic 93–148; BP diastolic 41–77
[2017-02-01 04:13] LABS: BASE EXCESS 1.1 mEq/L (-3 to +3); BICARBONATE 26.6 mEq/L (22-26); COMMENTS - BLOOD GASES C; DEVICE 840; FI02 75 %; MECHANICAL RATE 11 resp/min; METHEMOGLOBIN 0.9 % (0-1.5); MODE AC/PC; PCO2 46 mm Hg (35-45); PO2 93 mm Hg (80-100); PRESSURE CONTROL VENTILATION 20 CM H20; SITE LR ALINE; TOTAL RESP RATE 20 resp/min; pH 7.37 (7.35-7.45)
[2017-02-01 04:14] LABS: PEEP 6.5 CM/H20
[2017-02-01 05:43] LABS: NRBC (%) 0.8 /100 WBC (0-0)
[2017-02-01 06:07] LABS: POINT-OF-CARE METER ID UU14162636
[2017-02-01 06:10] LABS: ANION GAP 11 MEQ/L (2-14); CHLORIDE 105 MEQ/L (99-109); GFR ESTIMATE (CALCULATED) 57 mL/min/; GLUCOSE 196 mg/dL (70-99); POTASSIUM 3.7 MEQ/L (3.7-5.4); SAMPLE HEMOLYSIS CHECK 0; SAMPLE ICTERIC CHECK 0; SAMPLE LIPEMIA CHECK 0; SODIUM 142 MEQ/L (136-147); UREA NITROGEN (BUN) 50 mg/dL (9-23)
[2017-02-01 06:25] LABS: EOSINOPHIL (%) 0.8 % (0-5); HEMATOCRIT 27.4 % (36.0-46.0); IMMATURE GRANULOCYTE (%) 0.8 % (0.0-0.7); LYMPHOCYTE COUNT 0.7 K/uL (1.0-2.8); MCH 24.3 PG (29.0-34.0); MCHC 29.9 G/DL (30.0-36.0); MCV 81.3 FL (83-99); MONOCYTE (%) 5.5 % (3-12); MONOCYTE COUNT 0.1 K/uL (0-0.8); NEUTROPHIL (%) 64.4 % (45-76); NEUTROPHIL COUNT 1.6 K/uL (1.8-6.4); RBC DIS.WIDTH-CV 20.3 % (11.8-14.6); RBC DIS.WIDTH-SD 60.6 % (39-53); RED BLOOD COUNT 3.37 M/uL (3.80-5.20)
[2017-02-01 06:29] LABS: WHITE BLOOD COUNT 2.5 K/uL (4.1-10.2)
[2017-02-01 07:29] LABS: HEMATOLOGY COMMENT 1 SMEAR COMPATIBLE; PLAT.SUFFICIENCY ADEQUATE; USER ID STC
[2017-02-01 07:42] LABS: INTERNAL CONTROL VALID? YES
[2017-02-01 20:42] LABS: ADD MIUA? YES; BILIRUBIN NEGATIVE; BLOOD LARGE; COLOR YELLOW ((YELLOW)); GLUCOSE (STRIP) NEGATIVE; KETONES NEGATIVE; LEUKOCYTES MODERATE; NITRITE POSITIVE; PROTEIN (STRIP) NEGATIVE; SPECIFIC GRAVITY 1.015 (1.000-1.030); UROBILINOGEN 0.2 MG/DL (0.2-1.0)
[2017-02-01 21:27] LABS: BACTERIA 3+ /HPF; CALCIUM OXALATE CRYSTALS 2+ /HPF; EPITHELIAL CELLS NONE SEEN /HPF; MUCUS TRACE /LPF; RED BLOOD CELLS TNTC /HPF (0-5); WHITE BLOOD CELLS 30-40 /HPF (0-5); WHITE BLOOD CELLS CLUMP FEW /HPF (0-5)
[2017-02-01 22:07] LABS: POINT-OF-CARE METER ID UU14162636
[2017-02-01 23:53] LABS: BASE EXCESS 0.3 mEq/L (-3 to +3); BICARBONATE 27.4 mEq/L (22-26); CARBOXY HGB 2.1 % (0-5); METHEMOGLOBIN 0.9 % (0-1.5); PO2 93 mm Hg (80-100)
[2017-02-01 23:54] LABS: COMMENTS - BLOOD GASES C+; DEVICE 840; FI02 60 %; MECHANICAL RATE 11 resp/min; MODE AC/PC; PCO2 57 mm Hg (35-45); PRESSURE CONTROL VENTILATION 20 CM H20; SITE A-LINE; TOTAL RESP RATE 11 resp/min
[2017-02-01 23:55] LABS: PEEP 6.5 CM/H20
[2017-02-02 00:11] LABS: POINT-OF-CARE METER ID UU14162636
[2017-02-02 00:24] LABS: pH 7.29 (7.35-7.45)
[2017-02-02 05:20] LABS: POINT-OF-CARE METER ID UU13113803
[2017-02-02 11:00] VITALS: BP 115/60
[2017-02-02 12:00] VITALS: BP 115/60
[2017-02-02 12:22] LABS: POINT-OF-CARE METER ID UU13113731
[2017-02-02 12:59] LABS: EOSINOPHIL (%) 0 % (0-5); HEMATOCRIT 24.9 % (36.0-46.0); IMMATURE GRANULOCYTE (%) 0.6 % (0.0-0.7); LYMPHOCYTE COUNT 0.5 K/uL (1.0-2.8); MCH 23.6 PG (29.0-34.0); MCHC 29.3 G/DL (30.0-36.0); MEAN PLAT.VOLUME 10.4 uM^3 (9.5-12.4); MONOCYTE (%) 6.3 % (3-12); MONOCYTE COUNT 0.1 K/uL (0-0.8); NEUTROPHIL (%) 65.3 % (45-76); NEUTROPHIL COUNT 1.2 K/uL (1.8-6.4); RED BLOOD COUNT 3.09 M/uL (3.80-5.20)
[2017-02-02 13:00] VITALS: BP 115/60
[2017-02-02 13:06] LABS: PLATELET COUNT 135 K/uL (156-360); WHITE BLOOD COUNT 1.8 K/uL (4.1-10.2)
[2017-02-02 13:24] LABS: ANION GAP 13 MEQ/L (2-14); CHLORIDE 112 MEQ/L (99-109); SAMPLE HEMOLYSIS CHECK 1; SAMPLE ICTERIC CHECK 0; SAMPLE LIPEMIA CHECK 0; SODIUM 148 MEQ/L (136-147)
[2017-02-02 13:28] LABS: POTASSIUM 4.2 MEQ/L (3.7-5.4); TOTAL BILIRUBIN 0.5 MG/DL (0.0-1.0)
[2017-02-02 13:29] LABS: ALKALINE PHOSPHATASE 101 IU/L (3-129); GFR ESTIMATE (CALCULATED) > 59 mL/min/; GLUCOSE 174 mg/dL (70-99); UREA NITROGEN (BUN) 41 mg/dL (9-23)
[2017-02-02 18:56] LABS: POINT-OF-CARE METER ID UU14162636
[2017-02-02 19:00] VITALS: BP 104/60
[2017-02-02 20:36] LABS: POINT-OF-CARE METER ID UU14162636
[2017-02-02 23:10] LABS: BASE EXCESS 1.7 mEq/L (-3 to +3); BICARBONATE 27.2 mEq/L (22-26); CARBOXY HGB 2.6 % (0-5); COMMENTS - BLOOD GASES C+; DEVICE 840; FI02 45 %; METHEMOGLOBIN 1.3 % (0-1.5); PCO2 47 mm Hg (35-45); PO2 70 mm Hg (80-100); SITE A-LINE; pH 7.37 (7.35-7.45)
[2017-02-02 23:11] LABS: MECHANICAL RATE 10 resp/min; MODE SIMV/PC; PEEP 5 CM/H20; PRES. SUPPORT 10 CM/H2O; PRESSURE CONTROL VENTILATION 20 CM H20; TOTAL RESP RATE 15 resp/min
[2017-02-03 00:45] LABS: POINT-OF-CARE METER ID UU13113803
[2017-02-03 05:53] LABS: NRBC (%) 1.6 /100 WBC (0-0)
[2017-02-03 06:22] LABS: EOSINOPHIL (%) 0.2 % (0-5); HEMATOCRIT 25.1 % (36.0-46.0); IMMATURE GRANULOCYTE (%) 1.3 % (0.0-0.7); IMMATURE GRANULOCYTE COUNT 0.1 K/uL; LYMPHOCYTE COUNT 0.7 K/uL (1.0-2.8); MCH 23.8 PG (29.0-34.0); MCHC 29.1 G/DL (30.0-36.0); MCV 81.8 FL (83-99); MONOCYTE COUNT 0.2 K/uL (0-0.8); NEUTROPHIL (%) 78.8 % (45-76); NEUTROPHIL COUNT 3.6 K/uL (1.8-6.4); RBC DIS.WIDTH-SD 59.8 % (39-53); RED BLOOD COUNT 3.07 M/uL (3.80-5.20)
[2017-02-03 06:26] LABS: WHITE BLOOD COUNT 4.6 K/uL (4.1-10.2)
[2017-02-03 07:00] VITALS: BP 107/61
[2017-02-03 07:01] LABS: ANION GAP 9 MEQ/L (2-14); CHLORIDE 112 MEQ/L (99-109); GFR ESTIMATE (CALCULATED) > 59 mL/min/; GLUCOSE 191 mg/dL (70-99); MAGNESIUM 1.9 mg/dl (1.3-2.7); POTASSIUM 3.6 MEQ/L (3.7-5.4); SAMPLE HEMOLYSIS CHECK 0; SAMPLE ICTERIC CHECK 0; SAMPLE LIPEMIA CHECK 0; SODIUM 145 MEQ/L (136-147); UREA NITROGEN (BUN) 38 mg/dL (9-23)
[2017-02-03] MEDS ORDERED: ASCORBIC ACID500 M3 PO (07:12)
[2017-02-03] MEDS ORDERED: FEOSOL325 MG PO (07:12)
[2017-02-03 07:44] LABS: HEMATOLOGY COMMENT 1 SMEAR COMPATIBLE; MEAN PLAT.VOLUME 9.9 uM^3 (9.5-12.4); PLAT.SUFFICIENCY DECREASED; PLATELET COUNT 142 K/uL (156-360); USER ID TLW
[2017-02-03 11:00] VITALS: BP 133/65
[2017-02-03 12:00] VITALS: BP 127/60
[2017-02-03 12:13] LABS: POINT-OF-CARE METER ID UU13113803
[2017-02-03 18:39] LABS: POINT-OF-CARE METER ID UU13113803
[2017-02-03 20:00] VITALS: BP 138/58
[2017-02-03 23:32] LABS: C DIFF TOXIN NEGATIVE (NEGATIVE)
[2017-02-03 23:33] LABS: PROBE CHECK PASS; SPECIMEN PROCESSING CONTROL PASS
[2017-02-04 00:46] LABS: POINT-OF-CARE METER ID UU13113748
[2017-02-04 01:00] VITALS: BP 141/66
[2017-02-04 05:49] LABS: POINT-OF-CARE METER ID UU13113803
[2017-02-04 06:50] LABS: HEMATOCRIT 25.8 % (36.0-46.0); MCH 23.3 PG (29.0-34.0); MCHC 28.7 G/DL (30.0-36.0); MCV 81.4 FL (83-99); RBC DIS.WIDTH-CV 20.3 % (11.8-14.6); RBC DIS.WIDTH-SD 60.6 % (39-53); RED BLOOD COUNT 3.17 M/uL (3.80-5.20)
[2017-02-04 06:51] LABS: WHITE BLOOD COUNT 6.9 K/uL (4.1-10.2)
[2017-02-04 07:54] LABS: ABS NEUTROPHIL COUNT 5.68; ANISOCYTOSIS 1+; EOSINOPHIL (%) 0 % (0-5); IMMATURE GRANULOCYTE (%) 21.8 % (0.0-0.7); IMMATURE GRANULOCYTE COUNT 1.5 K/uL; LYMPHOCYTE COUNT 1.1 K/uL (1.0-2.8); MACROCYTES OCC; MICROCYTOSIS 1+; MONOCYTE (%) 4.6 % (3-12); MONOCYTE COUNT 0.3 K/uL (0-0.8); NEUTROPHIL (%) 56.8 % (45-76); NEUTROPHIL COUNT 3.9 K/uL (1.8-6.4); PLAT.SUFFICIENCY ADEQUATE; TEAR DROP CELLS RARE
[2017-02-04 07:55] LABS: MEAN PLAT.VOLUME 9.5 uM^3 (9.5-12.4); PLATELET COUNT 164 K/uL (156-360)
[2017-02-04 08:00] VITALS: BP 90/56
[2017-02-04 08:35] LABS: ANION GAP 10 MEQ/L (2-14); CHLORIDE 110 MEQ/L (99-109); GFR ESTIMATE (CALCULATED) > 59 mL/min/; GLUCOSE 131 mg/dL (70-99); POTASSIUM 3.3 MEQ/L (3.7-5.4); SAMPLE HEMOLYSIS CHECK 0; SAMPLE ICTERIC CHECK 0; SAMPLE LIPEMIA CHECK 0; SODIUM 146 MEQ/L (136-147); UREA NITROGEN (BUN) 38 mg/dL (9-23)
[2017-02-04 08:37] LABS: MAGNESIUM 2.3 mg/dl (1.3-2.7)
[2017-02-04 09:45] LABS: INTER. NORMALIZED RATIO 1.1; PROTHROMBIN TIME 11.1 (9.2-11.2); PTT 33.9 (25-32)
[2017-02-04 10:00] VITALS: BP 111/55
[2017-02-04 11:45] LABS: POINT-OF-CARE METER ID UU13113803; POINT-OF-CARE USER ID 606021424
[2017-02-04 12:00] VITALS: BP 105/50
[2017-02-04 16:00] VITALS: BP 139/65
[2017-02-04 17:54] LABS: POINT-OF-CARE METER ID UU13113803; POINT-OF-CARE USER ID 606021424
[2017-02-04 20:00] VITALS: BP 118/56
[2017-02-04 23:47] LABS: POINT-OF-CARE METER ID UU13113803
[2017-02-05] VITALS (12 sets, daily range): BP systolic 111–169; BP diastolic 41–72
[2017-02-05 06:05] LABS: POINT-OF-CARE METER ID UU13113803
[2017-02-05 06:54] LABS: HEMATOCRIT 24.6 % (36.0-46.0); INSTRUMENT ABS NEUTROPHIL CT 10.5 K/uL; MCH 23.2 PG (29.0-34.0); MCV 82.8 FL (83-99); MEAN PLAT.VOLUME 9.5 uM^3 (9.5-12.4); NRBC (%) 2.7 /100 WBC (0-0); PLATELET COUNT 181 K/uL (156-360); RBC DIS.WIDTH-SD 60.5 % (39-53); RED BLOOD COUNT 2.97 M/uL (3.80-5.20)
[2017-02-05 07:13] LABS: WHITE BLOOD COUNT 12.4 K/uL (4.1-10.2)
[2017-02-05 07:31] LABS: ANION GAP 9 MEQ/L (2-14); CHLORIDE 110 MEQ/L (99-109); GFR ESTIMATE (CALCULATED) > 59 mL/min/; GLUCOSE 155 mg/dL (70-99); MAGNESIUM 2.1 mg/dl (1.3-2.7); SAMPLE HEMOLYSIS CHECK 0; SAMPLE ICTERIC CHECK 0; SAMPLE LIPEMIA CHECK 0; SODIUM 145 MEQ/L (136-147); UREA NITROGEN (BUN) 35 mg/dL (9-23)
[2017-02-05 07:38] LABS: ANISOCYTOSIS 1+; BAND NEUTROPHILS 21.7 % (0-8.0); EOSINOPHIL ABS CT 0; HEMATOLOGY COMMENT 1 PLTS ADEQUATE ON SMEAR; LYMPHOCYTES 13.1 % (15.0-45.0); MICROCYTOSIS 1+; NUCLEATED RBC'S 2.6; PLAT.SUFFICIENCY ADEQUATE; POLYCHROMASIA 1+; SEG.NEUTROPHILS 59.1 % (46.0-76.0); SMUDGE CELLS 1.7
[2017-02-05 07:42] LABS: POTASSIUM 4.4 MEQ/L (3.7-5.4)
[2017-02-05 08:19] LABS: BASE EXCESS 1.5 mEq/L (-3 to +3); BICARBONATE 28.9 mEq/L (22-26); CARBOXY HGB 2.9 % (0-5); METHEMOGLOBIN 1.4 % (0-1.5); PCO2 63 mm Hg (35-45)
[2017-02-05 08:20] LABS: COMMENTS - BLOOD GASES C+; DEVICE VENTILATOR; FI02 70 %; INSPIRATION TIME 0.9 seconds; MECHANICAL RATE 18 resp/min; MODE AC; PEEP 12 CM/H20; PO2 95 mm Hg (80-100); SITE LR ALINE; TIDAL VOLUME 400 ML; TOTAL RESP RATE 18 resp/min; pH 7.27 (7.35-7.45)
[2017-02-05 09:57] LABS: BICARBONATE 27.3 mEq/L (22-26); CARBOXY HGB 2.9 % (0-5); METHEMOGLOBIN 1.1 % (0-1.5); PO2 81 mm Hg (80-100); pH 7.32 (7.35-7.45)
[2017-02-05 09:58] LABS: COMMENTS - BLOOD GASES C+; DEVICE VENTILATOR; FI02 60 %; INSPIRATION TIME 0.9 seconds; MECHANICAL RATE 24 resp/min; MODE AC/PC; PCO2 53 mm Hg (35-45); PRESSURE CONTROL VENTILATION 20 CM H20; SITE LR ALINE; TOTAL RESP RATE 24 resp/min
[2017-02-05 09:59] LABS: PEEP 10 CM/H20
[2017-02-05 17:59] LABS: POINT-OF-CARE METER ID UU14162636; POINT-OF-CARE USER ID 606021424
[2017-02-06 01:19] LABS: POINT-OF-CARE METER ID UU14162636
[2017-02-06 02:00] VITALS: BP 129/67
[2017-02-06 06:32] LABS: HEMATOCRIT 32.1 % (36.0-46.0); MCH 24.5 PG (29.0-34.0); MCHC 29.6 G/DL (30.0-36.0); MCV 82.9 FL (83-99); MEAN PLAT.VOLUME 9.4 uM^3 (9.5-12.4); NRBC (%) 3.9 /100 WBC (0-0); PLATELET COUNT 172 K/uL (156-360); RBC DIS.WIDTH-CV 19.2 % (11.8-14.6); RBC DIS.WIDTH-SD 57.6 % (39-53)
[2017-02-06 06:33] LABS: RED BLOOD COUNT 3.87 M/uL (3.80-5.20)
[2017-02-06 06:58] LABS: ANION GAP 8 MEQ/L (2-14); CHLORIDE 107 MEQ/L (99-109); GFR ESTIMATE (CALCULATED) > 59 mL/min/; GLUCOSE 160 mg/dL (70-99); MAGNESIUM 1.9 mg/dl (1.3-2.7); SAMPLE HEMOLYSIS CHECK 0; SAMPLE ICTERIC CHECK 0; SAMPLE LIPEMIA CHECK 0; SODIUM 145 MEQ/L (136-147); UREA NITROGEN (BUN) 37 mg/dL (9-23)
[2017-02-06 07:02] LABS: POTASSIUM 3.3 MEQ/L (3.7-5.4)
[2017-02-06 08:03] LABS: ABS NEUTROPHIL COUNT 11.3; ANISOCYTOSIS 1+; ATYPICAL LYMPHOCYTE 3.5 %; BAND NEUTROPHILS 7.1 % (0-8.0); EOSINOPHIL ABS CT 0; INSTRUMENT ABS NEUTROPHIL CT 10.1 K/uL; LYMPHOCYTES 7.1 % (15.0-45.0); MICROCYTOSIS 1+; MYELOCYTES 2.7 %; NUCLEATED RBC'S 1.8; PLAT.SUFFICIENCY ADEQUATE
[2017-02-06 08:40] LABS: SEG.NEUTROPHILS 79.6 % (46.0-76.0)
[2017-02-06 12:00] VITALS: BP 115/46
[2017-02-06 12:15] LABS: POINT-OF-CARE METER ID UU13113803
[2017-02-06 14:00] VITALS: BP 106/50
[2017-02-06 17:56] LABS: POINT-OF-CARE METER ID UU13113803
[2017-02-06 20:00] VITALS: BP 121/52
[2017-02-07 00:54] LABS: POINT-OF-CARE METER ID UU14162636
[2017-02-07 01:47] LABS: BASE EXCESS -2.5 mEq/L (-3 to +3); BICARBONATE 27.9 mEq/L (22-26); CARBOXY HGB 2.4 % (0-5); METHEMOGLOBIN 1.4 % (0-1.5); PCO2 84 mm Hg (35-45); PO2 60 mm Hg (80-100); pH 7.13 (7.35-7.45)
[2017-02-07 01:48] LABS: DEVICE PB840; FI02 80 %; MECHANICAL RATE 24 resp/min; MODE ACPC; PEEP 8 CM/H20; PRESSURE CONTROL VENTILATION 20 CM H20; SITE A-LINE; TOTAL RESP RATE 25 resp/min
[2017-02-07 03:52] LABS: BASE EXCESS -4.4 mEq/L (-3 to +3); BICARBONATE 23.6 mEq/L (22-26); CARBOXY HGB 2.4 % (0-5); METHEMOGLOBIN 1.2 % (0-1.5); PO2 49 mm Hg (80-100)
[2017-02-07 03:53] LABS: PCO2 59 mm Hg (35-45); PEEP 35 CM/H20; pH 7.21 (7.35-7.45)
[2017-02-07 03:55] LABS: DEVICE PB840; FI02 100 %; MECHANICAL RATE 30 resp/min; SITE A-LINE; TOTAL RESP RATE 30 resp/min
[2017-02-07 03:56] LABS: MODE BILEVEL 30/0
[2017-02-07 05:29] LABS: POINT-OF-CARE METER ID UU14174217
[2017-02-07 06:15] LABS: HEMATOCRIT 30.9 % (36.0-46.0); MCH 24.5 PG (29.0-34.0); MCHC 28.8 G/DL (30.0-36.0); MCV 85.1 FL (83-99); MEAN PLAT.VOLUME 9.7 uM^3 (9.5-12.4); NRBC (%) 2.8 /100 WBC (0-0); RBC DIS.WIDTH-CV 19.1 % (11.8-14.6); RBC DIS.WIDTH-SD 59.3 % (39-53); RED BLOOD COUNT 3.63 M/uL (3.80-5.20)
[2017-02-07 06:18] LABS: WHITE BLOOD COUNT 8.2 K/uL (4.1-10.2)
[2017-02-07 06:42] LABS: ANION GAP 14 MEQ/L (2-14); CHLORIDE 105 MEQ/L (99-109); GFR ESTIMATE (CALCULATED) 51 mL/min/; GLUCOSE 141 mg/dL (70-99); SAMPLE HEMOLYSIS CHECK 0; SAMPLE ICTERIC CHECK 0; SAMPLE LIPEMIA CHECK 0; SODIUM 143 MEQ/L (136-147); UREA NITROGEN (BUN) 50 mg/dL (9-23)
[2017-02-07 06:45] LABS: MAGNESIUM 2.5 mg/dl (1.3-2.7); POTASSIUM 4.2 MEQ/L (3.7-5.4)
[2017-02-07 07:21] LABS: BASE EXCESS -4.5 mEq/L (-3 to +3); CARBOXY HGB 2.2 % (0-5); METHEMOGLOBIN 0.8 % (0-1.5); PCO2 55 mm Hg (35-45); PO2 58 mm Hg (80-100)
[2017-02-07 07:22] LABS: COMMENTS - BLOOD GASES C+; DEVICE 840 VENTILATOR; FI02 100 %; INSPIRATION TIME 1.72 seconds; MECHANICAL RATE 30 resp/min; MODE BILEVEL; PEEP 0 CM/H20; PRESSURE CONTROL VENTILATION 30 CM H20; SITE LT RADIAL ALINE; TOTAL RESP RATE 44 resp/min
[2017-02-07 07:23] LABS: pH 7.23 (7.35-7.45)
[2017-02-07 08:50] LABS: BASE EXCESS -5.5 mEq/L (-3 to +3); BICARBONATE 23.2 mEq/L (22-26); METHEMOGLOBIN 1.2 % (0-1.5)
[2017-02-07 08:54] LABS: COMMENTS - BLOOD GASES C+; DEVICE 840 VENTILATOR; FI02 100 %; MECHANICAL RATE 14 resp/min; MODE BILEVEL; PCO2 65 mm Hg (35-45); PO2 89 mm Hg (80-100); SITE LT RADIAL ALINE; TOTAL RESP RATE 24 resp/min; pH 7.16 (7.35-7.45)
[2017-02-07 08:55] LABS: PEEP 0 CM/H20; PRESSURE CONTROL VENTILATION 25 CM H20
[2017-02-07 10:00] VITALS: BP 133/52
[2017-02-07 10:22] LABS: BASE EXCESS -6.7 mEq/L (-3 to +3); BICARBONATE 22.5 mEq/L (22-26); METHEMOGLOBIN 1.3 % (0-1.5); PCO2 66 mm Hg (35-45); PO2 89 mm Hg (80-100)
[2017-02-07 10:23] LABS: COMMENTS - BLOOD GASES C+; DEVICE 840 VENTILATOR; FI02 100 %; MECHANICAL RATE 14 resp/min; MODE BILEVEL; PEEP 0 CM/H20; PRES. SUPPORT 35 CM/H2O; PRESSURE CONTROL VENTILATION 25 CM H20; SITE LT RADIAL ALINE; TOTAL RESP RATE 22 resp/min; pH 7.14 (7.35-7.45)
[2017-02-07 10:25] LABS: PRES. SUPPORT 30 CM/H2O
[2017-02-07 10:39] LABS: ABS NEUTROPHIL COUNT 6.9; ANISOCYTOSIS 1+; EOSINOPHIL ABS CT 0; HEMATOLOGY COMMENT 1 PLT CLUMPS; INSTRUMENT ABS NEUTROPHIL CT 7.1 K/uL; LYMPHOCYTES 9.9 % (15.0-45.0); MICROCYTOSIS 1+; MYELOCYTES 3.6 %; NUCLEATED RBC'S 4.5; PLAT.SUFFICIENCY ADEQUATE; POLYCHROMASIA 1+; SMUDGE CELLS 4.5
[2017-02-07 10:40] LABS: BAND NEUTROPHILS 29.7 % (0-8.0); SEG.NEUTROPHILS 54.1 % (46.0-76.0)
[2017-02-07 12:41] LABS: POINT-OF-CARE METER ID UU14174217; POINT-OF-CARE USER ID 606021424
[2017-02-07 12:49] LABS: BICARBONATE 21.3 mEq/L (22-26); CARBOXY HGB 1.9 % (0-5); METHEMOGLOBIN 1.2 % (0-1.5); PCO2 64 mm Hg (35-45); PO2 100 mm Hg (80-100)
[2017-02-07 12:50] LABS: COMMENTS - BLOOD GASES C+; DEVICE 840 VENTILATOR; FI02 100 %; MECHANICAL RATE 20 resp/min; MODE BILEVEL; PEEP 0 CM/H20; PRES. SUPPORT 35 CM/H2O; PRESSURE CONTROL VENTILATION 25 CM H20; SITE LT RADIAL ALINE; TOTAL RESP RATE 27 resp/min; pH 7.13 (7.35-7.45)
[2017-02-07 13:00] VITALS: BP 160/54
[2017-02-07 14:48] LABS: BICARBONATE 21.8 mEq/L (22-26); CARBOXY HGB 2.7 % (0-5); METHEMOGLOBIN 0.6 % (0-1.5); PCO2 64 mm Hg (35-45); PO2 96 mm Hg (80-100); pH 7.14 (7.35-7.45)
[2017-02-07 14:49] LABS: COMMENTS - BLOOD GASES +C; DEVICE PB840; FI02 90 %; MECHANICAL RATE 34 resp/min; MODE AC; PEEP 10 CM/H20; SITE LRALINE; TIDAL VOLUME 300 ML; TOTAL RESP RATE 34 resp/min
[2017-02-07 16:00] VITALS: BP 143/55
[2017-02-07 16:17] LABS: ANION GAP 13 MEQ/L (2-14); CHLORIDE 105 MEQ/L (99-109); DIRECT BILIRUBIN 3.1 mg/dL (0.0-0.3); GFR ESTIMATE (CALCULATED) 42 mL/min/; GLUCOSE 177 mg/dL (70-99); MAGNESIUM 2.4 mg/dl (1.3-2.7); POTASSIUM 3.7 MEQ/L (3.7-5.4); SAMPLE HEMOLYSIS CHECK 0; SAMPLE ICTERIC CHECK 1; SAMPLE LIPEMIA CHECK 0; SODIUM 140 MEQ/L (136-147); UREA NITROGEN (BUN) 53 mg/dL (9-23)
[2017-02-07 16:19] LABS: ALKALINE PHOSPHATASE 303 IU/L (3-129); TOTAL BILIRUBIN 3.5 MG/DL (0.0-1.0)
[2017-02-07 17:21] LABS: POINT-OF-CARE METER ID UU14174217; POINT-OF-CARE USER ID 606021424
[2017-02-07 20:23] LABS: BASE EXCESS -7.7 mEq/L (-3 to +3); BICARBONATE 20.8 mEq/L (22-26); CARBOXY HGB 1.8 % (0-5); COMMENTS - BLOOD GASES C+; DEVICE VENT; FI02 90 %; MECHANICAL RATE 34 resp/min; METHEMOGLOBIN 0.9 % (0-1.5); MODE AC; PCO2 57 mm Hg (35-45); PO2 147 mm Hg (80-100); SITE ALINE; TOTAL RESP RATE 34 resp/min; pH 7.17 (7.35-7.45)
[2017-02-07 20:24] LABS: PEEP 5 CM/H20; TIDAL VOLUME 300 ML
[2017-02-07 23:40] VITALS: BP 172/70
[2017-02-08] VITALS (7 sets, daily range): BP systolic 114–207; BP diastolic 41–72
[2017-02-08 06:13] LABS: HEMATOCRIT 26.7 % (36.0-46.0); MCH 24.4 PG (29.0-34.0); MCHC 28.8 G/DL (30.0-36.0); MCV 84.8 FL (83-99); NRBC (%) 2.8 /100 WBC (0-0); RBC DIS.WIDTH-CV 19.8 % (11.8-14.6); RBC DIS.WIDTH-SD 61.1 % (39-53); RED BLOOD COUNT 3.15 M/uL (3.80-5.20); WHITE BLOOD COUNT 6.8 K/uL (4.1-10.2)
[2017-02-08 06:23] LABS: POINT-OF-CARE METER ID UU14162636
[2017-02-08 06:26] LABS: ALKALINE PHOSPHATASE 300 IU/L (3-129); ANION GAP 16 MEQ/L (2-14); CHLORIDE 105 MEQ/L (99-109); GFR ESTIMATE (CALCULATED) 27 mL/min/; GLUCOSE 154 mg/dL (70-99); MAGNESIUM 2.6 mg/dl (1.3-2.7); POTASSIUM 3.9 MEQ/L (3.7-5.4); SAMPLE HEMOLYSIS CHECK 0; SAMPLE ICTERIC CHECK 1; SAMPLE LIPEMIA CHECK 0; SODIUM 143 MEQ/L (136-147); TOTAL BILIRUBIN 3.8 MG/DL (0.0-1.0); UREA NITROGEN (BUN) 67 mg/dL (9-23)
[2017-02-08 08:03] LABS: ANISOCYTOSIS 1+; BAND NEUTROPHILS 11.4 % (0-8.0); BURR CELLS 1+; EOSINOPHIL ABS CT 0; HYPOCHROMASIA 1+; INSTRUMENT ABS NEUTROPHIL CT 5.9 K/uL; LYMPHOCYTES 8.8 % (15.0-45.0); MEAN PLAT.VOLUME 9.8 uM^3 (9.5-12.4); MICROCYTOSIS 1+; MYELOCYTES 0.9 %; NUCLEATED RBC'S 2.6; OVALOCYTES 1+; PLAT.SUFFICIENCY DECREASED; POIKILOCYTOSIS 1+; POLYCHROMASIA 1+; SMUDGE CELLS 2.6; TOXIC GRANULATION 1+
[2017-02-08 08:16] LABS: PLATELET COUNT 100 K/uL (156-360); SEG.NEUTROPHILS 76.3 % (46.0-76.0)
[2017-02-08 08:28] LABS: BICARBONATE 21.4 mEq/L (22-26); CARBOXY HGB 2.2 % (0-5); METHEMOGLOBIN 0.9 % (0-1.5); PCO2 60 mm Hg (35-45)
[2017-02-08 08:29] LABS: COMMENTS - BLOOD GASES C+; DEVICE 840; FI02 90 %; MECHANICAL RATE 34 resp/min; MODE AC; PEEP 10 CM/H20; PO2 117 mm Hg (80-100); SITE ALINE; TIDAL VOLUME 300 ML; TOTAL RESP RATE 34 resp/min; pH 7.16 (7.35-7.45)
[2017-02-08 12:31] LABS: POINT-OF-CARE METER ID UU14162636
[2017-02-08 14:52] LABS: BILIRUBIN ND; BLOOD ND; COLOR RED ((YELLOW)); GLUCOSE (STRIP) ND; KETONES ND; LEUKOCYTES ND; NITRITE ND; PH, URINE ND (5-8); PROTEIN (STRIP) ND; UROBILINOGEN ND MG/DL (0.2-1.0)
[2017-02-08 14:53] LABS: ADD MIUA? YES; SPECIFIC GRAVITY ND (1.000-1.030)
[2017-02-08 14:54] LABS: EPITHELIAL CELLS RARE /HPF; MUCUS NONE SEEN /LPF; RED BLOOD CELLS TNTC /HPF (0-5)
[2017-02-08 14:55] LABS: BACTERIA RARE /HPF; CASTS NONE SEEN /LPF; CRYSTALS PRESENT; UCUL ADDED? NO
[2017-02-08 17:48] LABS: POINT-OF-CARE METER ID UU14162636
[2017-02-08 21:00] LABS: POINT-OF-CARE METER ID UU14162636
[2017-02-09] VITALS: BP 143/51
[2017-02-09 00:43] LABS: POINT-OF-CARE METER ID UU14162636
[2017-02-09 04:00] VITALS: BP 144/57
[2017-02-09 06:01] LABS: HEMATOCRIT 25.1 % (36.0-46.0); MCH 24.9 PG (29.0-34.0); MCHC 29.9 G/DL (30.0-36.0); MCV 83.4 FL (83-99); MEAN PLAT.VOLUME 11.4 uM^3 (9.5-12.4); NRBC (%) 1.8 /100 WBC (0-0); PLATELET COUNT 123 K/uL (156-360); RBC DIS.WIDTH-CV 20.3 % (11.8-14.6); RBC DIS.WIDTH-SD 60.6 % (39-53); RED BLOOD COUNT 3.01 M/uL (3.80-5.20)
[2017-02-09 06:03] LABS: WHITE BLOOD COUNT 10.3 K/uL (4.1-10.2)
[2017-02-09 06:22] LABS: ANION GAP 17 MEQ/L (2-14); CHLORIDE 103 MEQ/L (99-109); MAGNESIUM 2.7 mg/dl (1.3-2.7); SAMPLE HEMOLYSIS CHECK 2; SAMPLE ICTERIC CHECK 0; SAMPLE LIPEMIA CHECK 0; SODIUM 138 MEQ/L (136-147); UREA NITROGEN (BUN) 86 mg/dL (9-23)
[2017-02-09 06:23] LABS: GFR ESTIMATE (CALCULATED) 20 mL/min/; GLUCOSE 237 mg/dL (70-99); POTASSIUM 5.2 MEQ/L (3.7-5.4)
[2017-02-09 06:24] LABS: POINT-OF-CARE METER ID UU14162636
[2017-02-09 06:30] LABS: ABS NEUTROPHIL COUNT 9.6; ANISOCYTOSIS 2+; BURR CELLS 2+; EOSINOPHIL ABS CT 0; HYPOCHROMASIA 2+; INSTRUMENT ABS NEUTROPHIL CT 8.9 K/uL; LYMPHOCYTES 5.3 % (15.0-45.0); MICROCYTOSIS 2+; NUCLEATED RBC'S 2.6; PLAT.SUFFICIENCY DECREASED; POIKILOCYTOSIS 2+; POLYCHROMASIA 1+; SMUDGE CELLS 4.4; TARGET CELLS 2+; TEAR DROP CELLS 2+; TOXIC GRANULATION 1+
[2017-02-09 08:00] VITALS: BP 142/63
[2017-02-09 10:37] LABS: BASE EXCESS -9.6 mEq/L (-3 to +3); BICARBONATE 19.9 mEq/L (22-26); CARBOXY HGB 2.4 % (0-5); COMMENTS - BLOOD GASES C+; DEVICE 840; FI02 70 %; MECHANICAL RATE 34 resp/min; METHEMOGLOBIN 1.1 % (0-1.5); MODE AC; PCO2 64 mm Hg (35-45); PEEP 12 CM/H20; PO2 89 mm Hg (80-100); SITE ALINE; TIDAL VOLUME 270 ML; TOTAL RESP RATE 34 resp/min
[2017-02-09 11:56] LABS: POINT-OF-CARE METER ID UU14162636
[2017-02-09 12:00] VITALS: BP 143/62
[2017-02-09 13:56] LABS: BASE EXCESS -4.9 mEq/L (-3 to +3); CARBOXY HGB 2.6 % (0-5); PO2 97 mm Hg (80-100)
[2017-02-09 13:57] LABS: COMMENTS - BLOOD GASES C+; DEVICE 840; FI02 70 %; MECHANICAL RATE 34 resp/min; MODE A/C; PCO2 69 mm Hg (35-45); PEEP 12 CM/H20; SITE ALINE; TIDAL VOLUME 270 ML; TOTAL RESP RATE 34 resp/min
[2017-02-09 13:58] LABS: pH 7.15 (7.35-7.45)
[2017-02-09 16:00] VITALS: BP 131/62
[2017-02-09 17:20] LABS: POINT-OF-CARE METER ID UU14174217
[2017-02-12 08:28] LABS: POINT-OF-CARE METER ID UU14174217
== END 2017-02-09 23:36 | DRG 870 ==
LOC: EME → EDBD 20:43 → 4WEST 22:42 → EDOF 22:42 → 4WEST 22:42
PROVIDERS: Emergency Medicine; Internal Medicine; Internal Medicine Nephrology; Obstetrics & Gynecology; Specialist; Surgery
DX: A41.9 Sepsis, unspecified organism (principal); R65.21 Severe sepsis with septic shock; K72.00 Acute and subacute hepatic failure without coma; N17.0 Acute kidney failure with tubular necrosis; J15.1 Pneumonia due to Pseudomonas; J96.02 Acute respiratory failure with hypercapnia; J96.01 Acute respiratory failure with hypoxia; E87.3 Alkalosis; D61.818 Other pancytopenia; G93.49 Other encephalopathy; M33.11 Other dermatomyositis with respiratory involvement; I48.0 Paroxysmal atrial fibrillation; J98.2 Interstitial emphysema; E87.2 Acidosis; E66.01 Morbid (severe) obesity due to excess calories; J44.1 Chronic obstructive pulmonary disease with (acute) exacerbation; E80.6 Other disorders of bilirubin metabolism; Z51.5 Encounter for palliative care; Z68.42 Body mass index [BMI] 45.0-49.9, adult; I25.2 Old myocardial infarction; I49.5 Sick sinus syndrome; Z95.0 Presence of cardiac pacemaker; Z95.5 Presence of coronary angioplasty implant and graft; Z87.891 Personal history of nicotine dependence; E78.5 Hyperlipidemia, unspecified; E87.5 Hyperkalemia; E03.9 Hypothyroidism, unspecified; E11.65 Type 2 diabetes mellitus with hyperglycemia; I10 Essential (primary) hypertension; K21.9 Gastro-esophageal reflux disease without esophagitis; R31.9 Hematuria, unspecified; Z66 Do not resuscitate; J45.909 Unspecified asthma, uncomplicated; Z99.81 Dependence on supplemental oxygen; E86.1 Hypovolemia; N39.0 Urinary tract infection, site not specified; B96.1 Klebsiella pneumoniae [K. pneumoniae] as the cause of diseases classified elsewhere; E87.6 Hypokalemia; I25.10 Atherosclerotic heart disease of native coronary artery without angina pectoris; L30.8 Other specified dermatitis; R19.7 Diarrhea, unspecified
CPT/HCPCS: 36600; 36620; 71010; 76705; 80048; 80048 91; 80053; 80076; 80202; 81003; 82570; 82607; 82746; 82803; 82948; 83540; 83605; 83735; 83880; 84100; 84300; 84466; 84484; 85025; 85610; 85730; 86850; 86900; 86901; 86920; 87040; 87070; 87077; 87081; 87086; 87186; 87205; 87449; 87493; 87502; 87641; 87801; 93005; 94002; 94003; 94640; 94640 76; 94667; 94668; 99202; 99281; 99284; J0330; J1447; J1630; J1644; J1650; J1815; J1940; J2060; J2185; J2250; J2543; J2704; J2765; J2920; J2930; J3010; J3370; J3475; J3480; J7050; J7070; J7120; J7512; P9016; P9040; P9045; P9047